=== PATIENT | male | born 1960 | race Caucasian/White ===

== ENCOUNTER 2020-11-01 09:30 | Outpatient (REF) | payer MEDICARE, MEDICAID, SELFPAY ==
[2020-11-01 10:53] LABS: Cholesterol 186 mg/dL; HDL Cholesterol 55 mg/dL; LDL Cholesterol Calculated 122 mg/dl; Triglycerides 46 mg/dL
== END 2020-11-01 09:31 | disposition home or self-care (01) ==
LOC: HO.LAB 09:30
PROVIDERS: PCP Internal Medicine; Visit Provider Internal Medicine
DX: E11.9 Type 2 diabetes mellitus without complications (principal)
CPT/HCPCS: 36415; 80061

== ENCOUNTER 2021-02-28 09:20 | Day surgery (SDC) | payer MEDICARE, MEDICAID, SELFPAY ==
--- NOTE | ~2021-02-28 | FL_ITS ---
EXAMINATION: XR LUMBAR PUNCTURE CLINICAL INFORMATION: Lower extremity neuropathy COMPARISON: None TECHNIQUE/FINDINGS:: Procedure and risks and benefits including bleeding, infection and headache were discussed with the patient and informed consent was obtained. The patient was positioned in the prone position. The back was prepped and draped in usual sterile fashion. Skin and soft tissues were anesthetized with 1% lidocaine plain. Using fluoroscopic guidance and a 22-gauge spinal needle, left-sided interlaminar access at the L4-L5 level was obtained. 9 mL of clear CSF fluid was removed. Opening pressure was 12 cm of water. FLUOROSCOPY TIME: 0.2 minutes DOSE AREA PRODUCT: 2.9 johns per centimeter squared. Total dose 13.6 mGy. 1 saved fluoroscopic image. FL/FL guided lumbar puncture LP IMPRESSION: Fluoroscopy-guided lumbar puncture.
[2021-02-28 10:45] LABS: MANUAL DIFF FLAG NO
[2021-02-28 10:48] LABS: Basophils Percent Auto 0.8 % (0-2); Eosinophils Absolute Auto 0.2 X10*3/uL (0.0-0.4); Eosinophils Percent Auto 3.8 % (0-4); Hematocrit 43.3 % (42-52); Hemoglobin 14.9 g/dl (14.0-18.0); Imm Gran Abs Auto 0.02 X10*3/uL (0.00-0.03); Imm Gran Pct Auto 0.4 % (0.0-0.4); Lymphocytes Absolute Auto 1.4 X10*3/uL (1.2-4.9); Lymphocytes Percent Auto 26.5 % (20-40); Mean Corpuscular HGB Conc 34.4 g/dl (31.0-36.0); Mean Corpuscular Hemoglobin 30.3 pg (27.0-33.0); Mean Platelet Volume 10.4 fL (9.4-12.4); Monocytes Absolute Auto 0.4 X10*3/uL (0.1-1.2); Monocytes Percent Auto 7.3 % (2-11); Neutrophils Absolute Auto 3.2 X10*3/uL (2.0-8.3); Neutrophils Percent Auto 61.2 % (45-73); Platelet Count 177 X10*3/uL (160-400); Red Blood Count 4.92 X10*6/uL (4.60-5.80); Red Cell Distribution Width 12.3 % (11.0-16.0); White Blood Count 5.2 X10*3/uL (4.8-10.8)
[2021-02-28 11:01] LABS: INTERNATIONAL NORM RATIO 1.2 (0.9-1.1); Prothrombin Time 13.2 SEC (9.9-13.0)
[2021-02-28 11:17] VITALS: BMI 32.1
--- NOTE | 2021-02-28 12:30 | HO.RADPN ---
RADIOLOGY Narrative Narrative: LP performed using 22 G spinal needle at l4/l5. 9 Ml CLEAR CSF REMOVED. oPENING PRESSURE 12 CM H20
[2021-02-28 12:35] VITALS: BP 140/87; PULSE 49; RESP 18; TEMP 36.9; O2SAT 95
[2021-02-28 12:50] VITALS: BP 149/85; PULSE 49; RESP 18; O2SAT 94
[2021-02-28 13:05] VITALS: BP 155/90; PULSE 61; RESP 18; O2SAT 95
[2021-02-28 13:09] LABS: Oligoclonal Serum Yes
[2021-02-28 13:28] LABS: CSF Appearance Clear, Colorless; CSF Tube # 1
[2021-02-28 13:35] VITALS: BP 132/85; PULSE 56; RESP 18; O2SAT 96
[2021-02-28 13:37] LABS: Glucose CSF 59 mg/dL; Total Protein CSF 144.2 mg/dL (15-45)
[2021-02-28 13:49] LABS: Appearance CSF CLEAR; CSF Tube # 4; Color CSF COLORLESS
[2021-02-28 13:50] LABS: Red Blood Cell CSF 0 MM*3; White Blood Cell CSF 0 MM*3
[2021-02-28 14:05] VITALS: BP 141/88; PULSE 54; RESP 18; O2SAT 99
[2021-02-28 14:36] VITALS: BP 148/93; PULSE 59; RESP 18; TEMP 37; O2SAT 100
[2021-03-03 01:37] LABS: Albumin 4.1 g/dL (3.5-5.2); Albumin, CSF 95.6 mg/dL (8.0-42.0); IgG 1100 mg/dL (600-1640); IgG Synthesis Rate 12.2 mg/24 h (-9.9-3.3); IgG, CSF 14.4 mg/dL (0.8-7.7)
== END 2021-02-28 14:47 | disposition home or self-care (01) ==
PROVIDERS: Psychiatry & Neurology Neurology; Radiology Diagnostic Radiology; PCP Internal Medicine; Visit Provider Radiology Diagnostic Radiology
PROC: 009U3ZZ Drainage of Spinal Canal, Percutaneous Approach (ICD-10-PCS; CPT 62270; principal; 2021-02-28 11:00)
DX: G61.81 Chronic inflammatory demyelinating polyneuritis (principal); M79.671 Pain in right foot; R73.01 Impaired fasting glucose; F32.9 Major depressive disorder, single episode, unspecified; F43.10 Post-traumatic stress disorder, unspecified; I10 Essential (primary) hypertension; E66.9 Obesity, unspecified; Z79.899 Other long term (current) drug therapy; Z79.52 Long term (current) use of systemic steroids
CPT/HCPCS: 36415; 62328; 82042; 82945; 83916; 84157; 85025; 85610; 85730; 87015; 87070; 87205; 89051

== ENCOUNTER 2021-03-21 09:23 | Outpatient (REF) | payer MEDICARE, MEDICAID, SELFPAY ==
[2021-03-21 11:28] LABS: HIV AB/AG Nonreactive (Nonreactive); HIV Num 1 0.11 S/CO (0.00-0.99)
== END 2021-03-21 09:24 | disposition home or self-care (01) ==
LOC: HO.LAB 09:23
PROVIDERS: PCP Internal Medicine; Visit Provider Psychiatry & Neurology Neurology
DX: Z11.4 Encounter for screening for human immunodeficiency virus [HIV] (principal); G61.81 Chronic inflammatory demyelinating polyneuritis
CPT/HCPCS: 36415; 87389

== ENCOUNTER 2021-06-06 00:22 | Emergency (ER) | payer MEDICARE, MEDICAID, SELFPAY ==
--- NOTE | ~2021-06-06 | CT_ITS ---
EXAMINATION: CT ANGIOGRAM OF THE CHEST WITH AND WITHOUT CONTRAST (CT PULMONARY ANGIOGRAM FOR PE) CLINICAL INFORMATION: Reason for Exam covid, r/o dvt COMPARISON: None TECHNIQUE: Prior to contrast administration, noncontrast localization images were obtained. Subsequently, multidetector volumetric imaging was performed from the thoracic inlet to below the diaphragms following the administration of 80 mL Omnipaque 350 intravenous contrast. No contrast reaction reported Sagittal, coronal, and MIP oblique sagittal reformatted images were obtained on the CT workstation, uploaded to PACS, and reviewed. This CT examination was performed using dose optimization techniques as appropriate, variously including the following: *Automated exposure control *Adjustment of mA and/or kV according to patient size (this includes techniques or standardized protocols for targeted exams where dose is matched to indication/reason for exam; i.e. extremities or head) *Use of iterative reconstruction technique Total exam dose-length product 405 mGy-cm FINDINGS: QUALITY OF STUDY/CONTRAST BOLUS: Satisfactory. PULMONARY ARTERIES: No central or segmental pulmonary emboli. THORACIC AORTA: No aneurysm or dissection. LUNG: There are scattered peripherally predominant patchy groundglass and consolidative airspace opacities. PLEURA: No pleural effusion or pneumothorax. MEDIASTINUM: Normal heart size. No pericardial effusion. No hilar or mediastinal lymphadenopathy. No evidence of septal bowing or right heart strain. CHEST WALL/AXILLA: No axillary or internal mammary lymphadenopathy. OSSEOUS STRUCTURES: No acute or suspicious osseous abnormality. UPPER ABDOMEN: Multiple hepatic cysts are present, largest measuring 10.3 cm within the right lobe of liver. CT/CT angio chest PE protocol IMPRESSION: * No pulmonary embolism. * Bilateral peripherally predominant patchy groundglass and consolidative airspace opacities, the pattern and appearance of which is classic for COVID pneumonitis, mild to moderate. VTE: negative
--- NOTE | ~2021-06-06 | XR_ITS ---
EXAMINATION: XR CHEST CLINICAL INFORMATION: Shortness of breath and cough COMPARISON: None TECHNIQUE: Frontal view of the chest was obtained. FINDINGS: Lungs are hypoinflated. Multiple infiltrates are present. These are commonly reported imaging features of Covid 19 or viral pneumonia. Other processes such as influenza pneumonia or organizing pneumonia, as can be seen with drug toxicity and connective tissue disease, can cause a similar imaging pattern. XR/XR chest 1V IMPRESSION: Multifocal pulmonary infiltrates as described above. Follow-up PA and lateral chest is recommended after treatment to a short clearing.
[2021-06-06 00:41] VITALS: BP 145/79; PULSE 88; RESP 22; TEMP 36.9; O2SAT 97; BMI 31.7
--- NOTE | 2021-06-06 01:12 | ECG_ITS ---
Test Reason : SOB Blood Pressure : / mmHG Vent. Rate : 080 BPM Atrial Rate : 080 BPM P-R Int : 146 ms QRS Dur : 088 ms QT Int : 356 ms P-R-T Axes : 021 -04 008 degrees QTc Int : 410 ms Normal sinus rhythm Normal ECG No previous ECGs available Referred By: Nat Paniagua Electronically Signed By:Mikey Taveras
--- NOTE | 2021-06-06 01:17 | ED.URI ---
HPI - URI/Sore Throat General Chief Complaint: Upper Respiratory Symptoms Stated Complaint: flu like symptoms (+ COVID 2 wks ago) Time Seen by Provider: 06/06/21 01:04 Source: patient Mode of arrival: ambulatory Limitations: no limitations History of Present Illness HPI Narrative: Patient comes emergency room complaining of shortness of breath. Patient states that he already finishes quadrant pain 2 weeks after being diagnosed with COVID. Patient states that he has not recovered fully and actually his shortness of breath is getting worse. 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 However, now he has trouble walking up the stairs. Patient denies chest pain, no palpitations. Patient complaining of subjective fever and chills. Patient complaining of diffuse body and joint pain Related Data Home Medications Medication Instructions Recorded Confirmed carbamazepine 200 mg tablet 200 mg PO BEDTIME PRN 03/03/21 03/03/21 Previous Rx's Medication Instructions Recorded ibuprofen 800 mg tablet 800 mg PO TID #90 tab 11/01/20 levofloxacin 500 mg tablet 500 mg PO DAILY #7 tab 06/06/21 Allergies Allergy/AdvReac Type Severity Reaction Status Date / Time TERE inhibitors Allergy Unknown Cough Uncoded 12/13/12 00:00 Review of Systems Review of Systems: Constitutional : No Weight loss, complaining of subjective fever, chills, fatigue and generalized malaise ENT/Mouth : No Hearing loss, No Ear Pain, No Nasal Congestion, No Sinus Pain, No Hoarseness, No sore throat, No Rhinorrhea, No Swallowing Difficulty Eyes: No Eye Pain, No Swelling, No Redness, No Foreign Body, No Discharge, No Vision Changes Cardiovascular : No Chest Pain, no palpitations, worsening shortness of breath with exertion Respiratory : Complaining of Cough, No Sputum, No Wheezing, No Smoke Exposure, complaining of worsening Dyspnea Gastrointestinal : No Nausea, No Vomiting, No Diarrhea, No Constipation, No abdominal Pain, No Hematochezia, No Melena Genitourinary : no irregular bleeding, No Dysuria, No Urinary Frequency, No Hematuria, No Urinary Incontinence, No Urgency, No Flank Pain, No Urinary Flow Changes, No Hesitancy Musculoskeletal : No joint pain, No Myalgias, No Joint Swelling Skin : No Skin Lesions, No rash Neuro : No Weakness, No Numbness, No Paresthesias, No Loss of Consciousness, No Dizziness, No Headache Psych : No Anxiety/Panic, No Depression, No SI/HI/AH/VH, No Social Issues, Heme/Lymph: No Bruising, No Bleeding,No Lymphadenopathy Endocrine : No Polyuria, No Polydipsia, No Temperature Intolerance [facility] Past Medical History Medical History Neuropathy Obesity PTSD (post-traumatic stress disorder) Surgical History History of appendectomy History of cystoscopy History of surgery Family History Family History (Updated 03/03/21 @ 09:24 by SORIN Montgomery) Father Myocardial infarction Mother Hypertension Brother Diabetes Son Neuroblastoma Social History Social History Housing: Apartment Alcohol intake: current Alcohol intake frequency: holidays/special occasions only Patient Tobacco Use Status: Former Tobacco user Tobacco use type: Cigarette e-Cigarette/Vaping Use: Never Used Second Hand Smoke Exposure: No Advance Directives: No Advance Directives Information Provided: Yes service: Yes Current occupational status: employed and disabled Physical Exam Vital Signs: Vital Signs: Last Vital Signs Temp 98.5 F 06/06/21 00:41 Pulse 88 06/06/21 00:41 Resp 22 H 06/06/21 00:41 BP 145/79 H 06/06/21 00:41 Pulse Ox 97 06/06/21 00:41 BMI result Body Mass Index 31.7 Const: Other: Appearance: Alert. Oriented X3. No acute distress. Eyes: Pupils equal, round and reactive to light. ENT: Pharynx normal. Neck: Normal inspection. Neck supple. No lymph nodes noted. No crepitus CVS: Normal heart rate and rhythm. Pulses normal. Normal S1 and S2 Respiratory: No respiratory distress. Mildly Increased work of breathing No Wheezing. Patient does have rales bilaterally Abdomen: Soft and nontender. No rigidity. No distention. Skin: Skin warm and dry. Normal skin color. Normal skin turgor. Extremities: No lower extremity edema. No Lacerations. No Rash Neuro: Oriented X 3. No motor deficit. No sensory deficit. Moving all extermities. No slurred speech. Course Course Course Narrative: Patient was ambulated in the COVID section. Patient's oxygen saturation stayed above 95%. CT scan for PE was negative for DVT. Patient has multiple hepatic cysts. Patient received 1 dose of IV Levaquin, IV fluids and Decadron. Given the onset of patient's symptoms, age and medical history, patient is not a candidate for monoclonal antibody infusion therapy MDM - URI/Sore Throat Lab Data Result diagrams: 06/06/21 01:46 06/06/21 01:46 Labs: Lab Results 06/06/21 06/06/21 06/06/21 Range/Units 01:46 01:46 01:46 WBC 8.0 (4.8-10.8) X10*3/uL RBC 4.29 L (4.60-5.80) X10*6/uL Hgb 12.9 L (14.0-18.0) g/dl Hct 37.0 L (42.0-52.0) % MCV 86.2 (80.0-98.0) fL MCH 30.1 (27.0-33.0) pg MCHC 34.9 (31.0-36.0) g/dl RDW 12.3 (11.0-16.0) % Plt Count 159 L (160-400) X10*3/uL MPV 9.7 (9.4-12.4) fL Immature Gran % (Auto) 0.4 (0.0-0.4) % Neut % (Auto) 76.9 H (45-73) % Lymph % (Auto) 15.1 L (20-40) % [place] % (Auto) 6.7 (2-11) % Eos % (Auto) 0.8 (0-4) % Baso % (Auto) 0.1 (0-2) % Lymph # (Auto) 1.2 (1.2-4.9) X10*3/uL [place] # (Auto) 0.5 (0.1-1.2) X10*3/uL Eos # (Auto) 0.1 (0.0-0.4) X10*3/uL Baso # (Auto) 0.0 (0.0-0.2) X10*3/uL Abs Immat Gran (auto) 0.03 (0.00-0.03) X10*3/uL Absolute Neuts (auto) 6.1 (2.0-8.3) x10*3/uL Absolute Nucleated RBC 0.000 (0.0-0.012) X10*3/uL Nucleated RBC % (auto) 0.0 (0.0-0.2) /100WBC Smear Tech's Comments VERIFIED D-Dimer High Sensitivty 407 NG/ML Sodium (135-145) mmol/L Potassium (3.3-5.1) mmol/L Chloride (96-108) mmol/L Carbon Dioxide (22-29) mmol/L Anion Gap (12-20) BUN (9-16) mg/dL Creatinine (0.5-1.4) mg/dL Estim Creat Clear Calc Estimated GFR Random Glucose (60-115) mg/dL Lactic Acid (0.5-2.0) mmol/L Calcium (8.4-10.2) mg/dL Total Bilirubin (0.0-1.0) mg/dL Direct Bilirubin (0.0-0.5) mg/dL AST (5-37) U/L ALT (0-40) U/L Alkaline Phosphatase (39-117) U/L Troponin I High Sens (<3.5-35.0) ng/L B-Natriuretic Peptide (<100) pg/mL Total Protein (6.5-8.0) g/dL Albumin (3.5-5.0) g/dL COVID-19 (ANUSHA) Positive A (Negative) COVID-19 Clin Com See Note 06/06/21 06/06/21 06/06/21 Range/Units 01:46 01:46 01:46 WBC (4.8-10.8) X10*3/uL RBC (4.60-5.80) X10*6/uL Hgb (14.0-18.0) g/dl Hct (42.0-52.0) % MCV (80.0-98.0) fL MCH (27.0-33.0) pg MCHC (31.0-36.0) g/dl RDW (11.0-16.0) % Plt Count (160-400) X10*3/uL MPV (9.4-12.4) fL Immature Gran % (Auto) (0.0-0.4) % Neut % (Auto) (45-73) % Lymph % (Auto) (20-40) % [place] % (Auto) (2-11) % Eos % (Auto) (0-4) % Baso % (Auto) (0-2) % Lymph # (Auto) (1.2-4.9) X10*3/uL [place] # (Auto) (0.1-1.2) X10*3/uL Eos # (Auto) (0.0-0.4) X10*3/uL Baso # (Auto) (0.0-0.2) X10*3/uL Abs Immat Gran (auto) (0.00-0.03) X10*3/uL Absolute Neuts (auto) (2.0-8.3) x10*3/uL Absolute Nucleated RBC (0.0-0.012) X10*3/uL Nucleated RBC % (auto) (0.0-0.2) /100WBC Smear Tech's Comments D-Dimer High Sensitivty NG/ML Sodium 136 (135-145) mmol/L Potassium 4.1 (3.3-5.1) mmol/L Chloride 101 (96-108) mmol/L Carbon Dioxide 25 (22-29) mmol/L Anion Gap 14 (12-20) BUN 12 (9-16) mg/dL Creatinine 0.85 (0.5-1.4) mg/dL Estim Creat Clear Calc 107.7 Estimated GFR > 60 Random Glucose 105 (60-115) mg/dL Lactic Acid 1.0 (0.5-2.0) mmol/L Calcium 8.7 (8.4-10.2) mg/dL Total Bilirubin 1.1 H (0.0-1.0) mg/dL Direct Bilirubin 0.5 (0.0-0.5) mg/dL AST 54 H (5-37) U/L ALT 37 (0-40) U/L Alkaline Phosphatase 74 (39-117) U/L Troponin I High Sens 7.4 (<3.5-35.0) ng/L B-Natriuretic Peptide 39 (<100) pg/mL Total Protein 6.2 L (6.5-8.0) g/dL Albumin 3.5 (3.5-5.0) g/dL COVID-19 (ANUSHA) (Negative) COVID-19 Clin Com Imaging Data CTA for PE: Radiologist's impression: FINDINGS: QUALITY OF STUDY/CONTRAST BOLUS: Satisfactory. PULMONARY ARTERIES: No central or segmental pulmonary emboli.? THORACIC AORTA: No aneurysm or dissection. LUNG: There are scattered peripherally predominant patchy groundglass and consolidative airspace opacities. PLEURA: No pleural effusion or pneumothorax. MEDIASTINUM: Normal heart size.? No pericardial effusion.? No hilar or mediastinal lymphadenopathy.? No evidence of septal bowing or right heart strain. CHEST WALL/AXILLA: No axillary or internal mammary lymphadenopathy. OSSEOUS STRUCTURES: No acute or suspicious osseous abnormality.? UPPER ABDOMEN: Multiple hepatic cysts are present, largest measuring 10.3 cm within the right lobe of liver. CT/CT angio chest PE protocol IMPRESSION: *? No pulmonary embolism. *? Bilateral peripherally predominant patchy groundglass and consolidative airspace opacities, the pattern and appearance of which is classic for COVID pneumonitis, mild to moderate. ? VTE: negative Discharge Plan Discharge Clinical Impression: Pneumonia due to 2019 novel coronavirus Patient Disposition: Home, Self-Care Instructions: Pneumonia (ED) Additional Instructions: Please follow-up with your primary care physician tomorrow. If you have any worsening or new symptoms, please return to the emergency room or call 911 Prescriptions: New levofloxacin 500 mg tablet 500 mg PO DAILY Qty: 7 RF: 0 No Action ibuprofen 800 mg tablet 800 mg PO TID Qty: 90 RF: 8 carbamazepine 200 mg tablet 200 mg PO BEDTIME PRNRF: 0
--- NOTE | 2021-06-06 01:34 | PC.NURSE ---
when ambulating pt's PO 95-96% on RA. MD aware. Pt up to restroom for gown placement.
--- NOTE | 2021-06-06 02:04 | PC.NURSE ---
IV PLACED TO RAC, LABS DRAWN TO LAB. COVID OBTAINED ALONG WITH BC X 2. PT ALERT, RESPIRATIONS N/L. SKIN W/D. WILL CONTINUE TO MONITOR PT.
[2021-06-06 02:12] LABS: Basophils Percent Auto 0.1 % (0-2); Eosinophils Absolute Auto 0.1 X10*3/uL (0.0-0.4); Eosinophils Percent Auto 0.8 % (0-4); Hemoglobin 12.9 g/dl (14.0-18.0); Imm Gran Abs Auto 0.03 X10*3/uL (0.00-0.03); Imm Gran Pct Auto 0.4 % (0.0-0.4); Lymphocytes Absolute Auto 1.2 X10*3/uL (1.2-4.9); Lymphocytes Percent Auto 15.1 % (20-40); MANUAL DIFF FLAG SCAN; Mean Corpuscular HGB Conc 34.9 g/dl (31.0-36.0); Mean Corpuscular Hemoglobin 30.1 pg (27.0-33.0); Mean Corpuscular Volume 86.2 fL (80.0-98.0); Mean Platelet Volume 9.7 fL (9.4-12.4); Monocytes Absolute Auto 0.5 X10*3/uL (0.1-1.2); Monocytes Percent Auto 6.7 % (2-11); Neutrophils Absolute Auto 6.1 x10*3/uL (2.0-8.3); Neutrophils Percent Auto 76.9 % (45-73); Platelet Count 159 X10*3/uL (160-400); Red Blood Count 4.29 X10*6/uL (4.60-5.80); Red Cell Distribution Width 12.3 % (11.0-16.0); SCAN SMEAR FLAG 1
[2021-06-06] MEDS: 0.9 % Sodium Chloride 1,000 ML 999 ML IVCONT (02:13)
[2021-06-06] MEDS: dexAMETHasone sod phosphate 4 MG/ML VIAL 6 MG IVPUSH (02:14)
[2021-06-06] MEDS: levoFLOXacin/D5W 500 MG/100 ML PIGGYBACK 100 MG IV (02:14)
[2021-06-06 02:17] LABS: IDNOW Serial# 9DD0AD1C
[2021-06-06 02:19] LABS: COVID-19 Test Positive (Negative)
[2021-06-06 02:21] LABS: D Dimer High Sensitivity 407 NG/ML
[2021-06-06 02:30] LABS: SLIDE REVIEW VERIFIED
[2021-06-06 02:32] LABS: Alanine Aminotransferase 37 U/L (0-40); Albumin Level 3.5 g/dL (3.5-5.0); Alkaline Phosphatase 74 U/L (39-117); Anion Gap 14 (12-20); Aspartate Amino Transferase 54 U/L (5-37); Bilirubin Direct 0.5 mg/dL (0.0-0.5); Bilirubin Total 1.1 mg/dL (0.0-1.0); Blood Urea Nitrogen 12 mg/dL (9-16); Calcium 8.7 mg/dL (8.4-10.2); Carbon Dioxide 25 mmol/L (22-29); Chloride 101 mmol/L (96-108); Creatinine Clr Calc Pharmacy 107.7; Estimated Glomerular Filt Rate > 60; Glucose Random 105 mg/dL (60-115); Potassium 4.1 mmol/L (3.3-5.1); Sodium 136 mmol/L (135-145); Total Protein 6.2 g/dL (6.5-8.0)
[2021-06-06 02:33] LABS: B Type Natriuretic Peptide 39 pg/mL (<100); Troponin-I High Sensitivity 7.4 ng/L (<3.5-35.0)
[2021-06-06] MEDS: iohexoL 350 MG/ML 100 ML INFUS..BTL 65 ML IV (03:32)
== END 2021-06-06 05:25 | disposition home or self-care (01) ==
PROVIDERS: Emergency Provider Emergency Medicine; PCP Internal Medicine
DX: U07.1 COVID-19 (principal); J12.82 Pneumonia due to coronavirus disease 2019; R06.02 Shortness of breath
CPT/HCPCS: 36415; 71045; 71275; 80048; 80076; 83605; 83880; 84484; 85025; 85379; 87040; 87635; 93005; 96361; 96374; 96375; 99283; 99284; J1100; J1956; Q9967

== ENCOUNTER 2021-06-14 15:14 | Emergency (ER) | payer MEDICARE, MEDICAID, SELFPAY ==
--- NOTE | ~2021-06-14 | XR_ITS ---
EXAMINATION: XR CHEST CLINICAL INFORMATION: Chest tightness COMPARISON: Chest radiographs 06/06/2021, CTA chest 06/06/2021 TECHNIQUE: Frontal view of the chest was obtained. FINDINGS: There are patchy bilateral airspace opacities again seen of similar severity and distribution to recent imaging 06/06/2021. There is no interval lobar or segmental airspace consolidation or effusion. The heart is normal in size. The vascularity is normal. XR/XR chest 1V IMPRESSION: Patchy bilateral airspace opacities similar to recent imaging.
--- NOTE | 2021-06-14 15:50 | ECG_ITS ---
Test Reason : DYSPNEA Blood Pressure : / mmHG Vent. Rate : 082 BPM Atrial Rate : 082 BPM P-R Int : 146 ms QRS Dur : 082 ms QT Int : 360 ms P-R-T Axes : 013 000 011 degrees QTc Int : 420 ms Normal sinus rhythm Normal ECG No previous ECGs available Referred By: Generic ED Physician Electronically Signed By:CHECO CALLE MD
[2021-06-14 15:57] VITALS: BP 99/67; PULSE 95; RESP 18; TEMP 37; O2SAT 96; BMI 31.7
[2021-06-14 16:34] VITALS: BP 110/72; PULSE 83; RESP 20; TEMP 36.9; O2SAT 95
[2021-06-14 17:00] LABS: Basophils Percent Auto 0.5 % (0-2); Eosinophils Absolute Auto 0.1 X10*3/uL (0.0-0.4); Eosinophils Percent Auto 1.1 % (0-4); Hematocrit 36.3 % (42.0-52.0); Hemoglobin 12.3 g/dl (14.0-18.0); Imm Gran Abs Auto 0.05 X10*3/uL (0.00-0.03); Imm Gran Pct Auto 0.8 % (0.0-0.4); Lymphocytes Absolute Auto 1.4 X10*3/uL (1.2-4.9); Lymphocytes Percent Auto 22.6 % (20-40); MANUAL DIFF FLAG NO; Mean Corpuscular HGB Conc 33.9 g/dl (31.0-36.0); Mean Corpuscular Hemoglobin 29.9 pg (27.0-33.0); Mean Corpuscular Volume 88.3 fL (80.0-98.0); Monocytes Absolute Auto 0.7 X10*3/uL (0.1-1.2); Monocytes Percent Auto 10.8 % (2-11); Neutrophils Absolute Auto 4.1 x10*3/uL (2.0-8.3); Neutrophils Percent Auto 64.2 % (45-73); Platelet Count 262 X10*3/uL (160-400); Red Blood Count 4.11 X10*6/uL (4.60-5.80); Red Cell Distribution Width 12.1 % (11.0-16.0); White Blood Count 6.4 X10*3/uL (4.8-10.8)
--- NOTE | 2021-06-14 17:10 | ED.SOB ---
HPI - SOB/Dyspnea General Chief Complaint: Dyspnea Stated Complaint: covid + diff breathing Time Seen by Provider: 06/14/21 17:07 History of Present Illness HPI Narrative: Patient 60-year-old male tested positive for COVID approximately 3 weeks ago. Continued to have coughing congestion upper respiratory symptoms. Patient claimed the symptoms never improved. Presented back to the emergency department. There is no leg swelling. There is no chest pain. There is no diaphoresis. Patient from home. Patient is not vaccinated. Related Data Home Medications Medication Instructions Recorded Confirmed carbamazepine 200 mg tablet 200 mg PO BEDTIME PRN 03/03/21 03/03/21 Previous Rx's Medication Instructions Recorded ibuprofen 800 mg tablet 800 mg PO TID #90 tab 11/01/20 levofloxacin 500 mg tablet 500 mg PO DAILY #7 tab 06/06/21 doxycycline hyclate 100 mg capsule 100 mg PO BID 7 Days #14 cap 06/14/21 Allergies Allergy/AdvReac Type Severity Reaction Status Date / Time TERE inhibitors Allergy Unknown Cough Uncoded 06/14/21 16:40 Review of Systems Review of Systems: Positive coughing upper respiratory symptoms positive generalized malaise no focal weakness all system reviewed otherwise negative [facility] Past Medical History Attestation statement: The following information was validated with the patient. Medical History Neuropathy Obesity PTSD (post-traumatic stress disorder) Surgical History History of appendectomy History of cystoscopy History of surgery Family History Family History Father Myocardial infarction Mother Hypertension Brother Diabetes Son Neuroblastoma Social History Social History Housing: Apartment Alcohol intake: current Alcohol intake frequency: holidays/special occasions only Patient Tobacco Use Status: Former Tobacco user Tobacco use type: Cigarette e-Cigarette/Vaping Use: Never Used Second Hand Smoke Exposure: No Use of substances other than those prescribed or required for medical reasons: No Advance Directives: No Advance Directives Information Provided: Yes service: Yes Current occupational status: employed and disabled Physical Exam Vital Signs: Vital Signs: Last Vital Signs Temp 98.4 F 06/14/21 16:34 Pulse 83 06/14/21 16:34 Resp 20 06/14/21 16:34 BP 110/72 06/14/21 16:34 Pulse Ox 95 06/14/21 16:34 BMI result Body Mass Index 31.7 Appearance: Alert. Oriented X3. No acute distress. Eyes: Pupils equal, round and reactive to light. ENT: Pharynx normal. Neck: Normal inspection. Neck supple. No lymph nodes noted. No crepitus CVS: Normal heart rate and rhythm. Pulses normal. Normal S1 and S2 Respiratory: No respiratory distress. Breath sounds normal. No Wheezing. No rales Abdomen: Soft and nontender. No rigidity. No distention. good BS x4 Skin: Skin warm and dry. Normal skin color. Normal skin turgor. Extremities: No lower extremity edema. Neurovascular intact to all extremities. No Lacerations. No Rash Neuro: Oriented X 3. No motor deficit. No sensory deficit. Moving all extermities. No slurred speech MDM - SOB/Dyspnea MDM Narrative Medical decision making narrative: EKG showed a sinus pattern heart rate is 75 CO QRS QTC within normal limits there is no acute ST segment elevation noted. Patient's white count 6.4. Chest x-ray showed no acute changes. Patient did have COVID during the last ED presentation. Current COVID test is negative. Patient's D-dimer is 293 age adjusted is negative. In stable condition. Given risk of PE otherwise low. History not consistent with pulmonary emboli patient unlikely to have PE. Given the x-ray presentation will start patient on doxycycline for possible atypical pneumonia. Patient ambulated well in the emergency department. BMP was normal there is no evidence for congestive heart failure. Currently in stable condition. Will discharge home. Medical Records Attestation: I reviewed the patient's medical records. Lab Data Attestation: I reviewed the patient's lab results. Result diagrams: 06/14/21 16:53 06/14/21 16:53 Labs: Lab Results 06/14/21 06/14/21 06/14/21 Range/Units 16:52 16:53 16:53 WBC 6.4 (4.8-10.8) X10*3/uL RBC 4.11 L (4.60-5.80) X10*6/uL Hgb 12.3 L (14.0-18.0) g/dl Hct 36.3 L (42.0-52.0) % MCV 88.3 (80.0-98.0) fL MCH 29.9 (27.0-33.0) pg MCHC 33.9 (31.0-36.0) g/dl RDW 12.1 (11.0-16.0) % Plt Count 262 D (160-400) X10*3/uL MPV 9.0 L (9.4-12.4) fL Immature Gran % (Auto) 0.8 H (0.0-0.4) % Neut % (Auto) 64.2 (45-73) % Lymph % (Auto) 22.6 (20-40) % [place] % (Auto) 10.8 (2-11) % Eos % (Auto) 1.1 (0-4) % Baso % (Auto) 0.5 (0-2) % Lymph # (Auto) 1.4 (1.2-4.9) X10*3/uL [place] # (Auto) 0.7 (0.1-1.2) X10*3/uL Eos # (Auto) 0.1 (0.0-0.4) X10*3/uL Baso # (Auto) 0.0 (0.0-0.2) X10*3/uL Abs Immat Gran (auto) 0.05 H (0.00-0.03) X10*3/uL Absolute Neuts (auto) 4.1 (2.0-8.3) x10*3/uL Absolute Nucleated RBC 0.000 (0.0-0.012) X10*3/uL Nucleated RBC % (auto) 0.0 (0.0-0.2) /100WBC D-Dimer High Sensitivty NG/ML Sodium 141 (135-145) mmol/L Potassium 4.4 (3.3-5.1) mmol/L Chloride 108 (96-108) mmol/L Carbon Dioxide 26 (22-29) mmol/L Anion Gap 11 L (12-20) BUN 12 (9-16) mg/dL Creatinine 0.96 (0.5-1.4) mg/dL Estim Creat Clear Calc 95.4 Estimated GFR > 60 Random Glucose 96 (60-115) mg/dL Calcium 8.9 (8.4-10.2) mg/dL Troponin I High Sens (<3.5-35.0) ng/L B-Natriuretic Peptide (<100) pg/mL COVID-19 (ANUSHA) Negative (Negative) COVID-19 Clin Com See Note 06/14/21 06/14/21 Range/Units 16:53 17:37 WBC (4.8-10.8) X10*3/uL RBC (4.60-5.80) X10*6/uL Hgb (14.0-18.0) g/dl Hct (42.0-52.0) % MCV (80.0-98.0) fL MCH (27.0-33.0) pg MCHC (31.0-36.0) g/dl RDW (11.0-16.0) % Plt Count (160-400) X10*3/uL MPV (9.4-12.4) fL Immature Gran % (Auto) (0.0-0.4) % Neut % (Auto) (45-73) % Lymph % (Auto) (20-40) % [place] % (Auto) (2-11) % Eos % (Auto) (0-4) % Baso % (Auto) (0-2) % Lymph # (Auto) (1.2-4.9) X10*3/uL [place] # (Auto) (0.1-1.2) X10*3/uL Eos # (Auto) (0.0-0.4) X10*3/uL Baso # (Auto) (0.0-0.2) X10*3/uL Abs Immat Gran (auto) (0.00-0.03) X10*3/uL Absolute Neuts (auto) (2.0-8.3) x10*3/uL Absolute Nucleated RBC (0.0-0.012) X10*3/uL Nucleated RBC % (auto) (0.0-0.2) /100WBC D-Dimer High Sensitivty 293 NG/ML Sodium (135-145) mmol/L Potassium (3.3-5.1) mmol/L Chloride (96-108) mmol/L Carbon Dioxide (22-29) mmol/L Anion Gap (12-20) BUN (9-16) mg/dL Creatinine (0.5-1.4) mg/dL Estim Creat Clear Calc Estimated GFR Random Glucose (60-115) mg/dL Calcium (8.4-10.2) mg/dL Troponin I High Sens < 3.5 D (<3.5-35.0) ng/L B-Natriuretic Peptide 106 H (<100) pg/mL COVID-19 (ANUSHA) (Negative) COVID-19 Clin Com Discharge Plan Discharge Clinical Impression: Acute upper respiratory infection Patient Disposition: Home, Self-Care Instructions: Acute Bronchitis (ED) Prescriptions: New doxycycline hyclate 100 mg capsule 100 mg PO BID 7 Days Qty: 14 RF: 0 No Action levofloxacin 500 mg tablet 500 mg PO DAILY Qty: 7 RF: 0 ibuprofen 800 mg tablet 800 mg PO TID Qty: 90 RF: 8 carbamazepine 200 mg tablet 200 mg PO BEDTIME PRNRF: 0 Referrals: Robert Diallo MD [Primary Care Provider] - 2 days
[2021-06-14 17:14] LABS: Anion Gap 11 (12-20); Blood Urea Nitrogen 12 mg/dL (9-16); Calcium 8.9 mg/dL (8.4-10.2); Carbon Dioxide 26 mmol/L (22-29); Chloride 108 mmol/L (96-108); Creatinine Clr Calc Pharmacy 95.4; Estimated Glomerular Filt Rate > 60; Glucose Random 96 mg/dL (60-115); Potassium 4.4 mmol/L (3.3-5.1); Sodium 141 mmol/L (135-145)
[2021-06-14 17:18] LABS: COVID-19 Test Negative (Negative); IDNOW Serial# 9DD0AD1C
--- NOTE | 2021-06-14 17:18 | PC.NURSE ---
reporting ROTHMAN and inability to get exercise. skin pwd. ls cta. awaiting lab results. states he was first covid positive on 05/25 .
[2021-06-14 17:22] LABS: Troponin-I High Sensitivity < 3.5 ng/L (<3.5-35.0)
[2021-06-14 17:42] LABS: B Type Natriuretic Peptide 106 pg/mL (<100)
[2021-06-14 17:50] LABS: D Dimer High Sensitivity 293 NG/ML
[2021-06-14 18:28] VITALS: BP 146/93; RESP 18; O2SAT 95
== END 2021-06-14 18:34 | disposition home or self-care (01) ==
PROVIDERS: Emergency Provider Emergency Medicine Emergency Medical Services; PCP Internal Medicine
DX: J06.9 Acute upper respiratory infection, unspecified (principal); Z20.822 Contact with and (suspected) exposure to COVID-19; R06.02 Shortness of breath
CPT/HCPCS: 36415; 71045; 80048; 83880; 84484; 85025; 85379; 87635; 93005; 99283; 99284

== ENCOUNTER 2021-06-21 11:02 | Outpatient (REF) | payer MEDICARE, MEDICAID, SELFPAY ==
--- NOTE | ~2021-06-21 | XR_ITS ---
EXAMINATION: XR HAND, RIGHT CLINICAL INFORMATION: Pain. COMPARISON: None TECHNIQUE: PA, lateral, and oblique views of the right hand. FINDINGS: The bones and soft tissues are normal. No fracture. Alignment is anatomic. Joint spaces are maintained. No erosions or soft tissue calcifications. XR/XR hand RT 2V IMPRESSION: Unremarkable examination.
== END 2021-06-21 11:03 | disposition home or self-care (01) ==
LOC: HO.XRAY 11:02
PROVIDERS: PCP Internal Medicine; Visit Provider Internal Medicine
DX: M79.643 Pain in unspecified hand (principal)
CPT/HCPCS: 73120

== ENCOUNTER 2021-06-24 00:58 | Emergency (ER) | payer MEDICARE, MEDICAID, SELFPAY ==
[2021-06-24 01:28] VITALS: BP 158/87; PULSE 78; RESP 16; TEMP 36.7; O2SAT 97; BMI 32.1
--- NOTE | 2021-06-24 01:37 | ECG_ITS ---
Test Reason : SHOULDER PAIN Blood Pressure : / mmHG Vent. Rate : 071 BPM Atrial Rate : 071 BPM P-R Int : 162 ms QRS Dur : 084 ms QT Int : 394 ms P-R-T Axes : 037 003 028 degrees QTc Int : 428 ms Sinus rhythm with occasional Premature ventricular complexes Normal EKG When compared with ECG of 06-JUN-2021 02:00, Premature ventricular complexes are now Present Referred By: Generic ED Physician Electronically Signed By:BENJA ESPITIA
--- NOTE | 2021-06-24 02:12 | ED.EXTPRO ---
HPI - Extremity Problem General Chief complaint: Extremity Injury, Upper Stated complaint: right arm pain Time Seen by Provider: 06/24/21 02:12 Source: patient Mode of arrival: ambulatory History of Present Illness HPI Narrative: 60-year-old male presents with concerns regarding nerve pain into the right upper extremity that has been ongoing since and is currently being worked up by his primary care provider with plans for conduction studies. However, patient presents because he states he could not stand the pain into his hand denies having used splints at night although ruling out carpal tunnel is 1 of the goals for his primary care provider as per patient. Related Data Home Medications Medication Instructions Recorded Confirmed carbamazepine 200 mg tablet 200 mg PO BEDTIME PRN 03/03/21 06/23/21 prednisolone sodium phosphate 30 30 mg PO DAILY 06/21/21 06/23/21 mg disintegrating tablet Previous Rx's Medication Instructions Recorded ibuprofen 800 mg tablet 800 mg PO TID #90 tab 11/01/20 naproxen 500 mg tablet (Naprosyn) 500 mg PO BID PRN #60 tab 06/21/21 ketorolac 10 mg tablet 10 mg PO Q6H PRN 5 Days #20 tab 06/24/21 Allergies Allergy/AdvReac Type Severity Reaction Status Date / Time TERE inhibitors Allergy Unknown Cough Uncoded 06/14/21 16:40 Review of Systems Review of Systems: Pertinent positives and negatives as stated in HPI 10 point review of systems otherwise negative. [facility] Past Medical History Source: nursing notes reviewed Medical History Neuropathy Obesity PTSD (post-traumatic stress disorder) Surgical History History of appendectomy History of cystoscopy History of surgery Family History Family History Father Myocardial infarction Mother Hypertension Brother Diabetes Son Neuroblastoma Social History Social History Housing: Apartment Alcohol intake: current Alcohol intake frequency: holidays/special occasions only Patient Tobacco Use Status: Former Tobacco user Tobacco use type: Cigarette e-Cigarette/Vaping Use: Never Used Second Hand Smoke Exposure: No Advance Directives: No Advance Directives Information Provided: Yes service: Yes Current occupational status: employed and disabled Physical Exam Vital Signs: Vital Signs: Last Vital Signs Temp 98.1 F 06/24/21 01:28 Pulse 78 06/24/21 01:28 Resp 16 06/24/21 01:28 BP 158/87 H 06/24/21 01:28 Pulse Ox 97 06/24/21 01:28 BMI result Body Mass Index 32.1 VITAL SIGNS: Reviewed. GENERAL: Well developed, well nourished, in no acute distress. HEAD: Normocephalic/atraumatic EYES: PERRLA, EOMI LUNGS: Normal breath sounds. No adventitious sounds or accessory muscle use. SpO2<97> CARDIOVASCULAR: Regular rate and rhythm without noted murmurs ABDOMEN: Soft, non-tender, non-distended with bowel sounds. RIGHT UPPER EXTREMITY: No color changes, no erythema/induration, palpable radial/ulnar pulses with capillary refill less than 2 seconds but difficulty with making a fist and some swelling noted around palmar aspect of wrist. NEUROLOGIC: Alert and oriented x 4. Course Course Course Narrative: 60-year-old male with history and clinical presentation consistent with neuropathic pain suggestive of possible carpal tunnel and low clinical suspicion for any DVT or cellulitis. Patient was provided with combination analgesics and on re-evaluation states he is feeling much better. Review of all investigations otherwise negative for acute findings. MDM - Extremity (Nontraumatic) ECG Data Attestation EKG: I personally reviewed and interpreted this ECG as follows: Prior ECG tracings: available for review (06/06/2021) Interpretation: Sinus rhythm with PVCs, HR-71, no STEMI, MT/QRS/QTC are within normal limits. Discharge Plan Discharge Clinical Impression: Neuropathy Patient Disposition: Home, Self-Care Instructions: Peripheral Neuropathy (ED) Prescriptions: New ketorolac 10 mg tablet 10 mg PO Q6H PRN (Reason: pain) 5 Days Qty: 20 RF: 0 No Action ibuprofen 800 mg tablet 800 mg PO TID Qty: 90 RF: 8 carbamazepine 200 mg tablet 200 mg PO BEDTIME PRNRF: 0 prednisolone sodium phosphate 30 mg tablet,disintegrating 30 mg PO DAILY RF: 0 naproxen [Naprosyn] 500 mg tablet 500 mg PO BID PRN (Reason: pain) Qty: 60 RF: 7 Referrals: Robert Diallo MD [Primary Care Provider] - 2 days
[2021-06-24] MEDS: Acetaminophen 325 MG TABLET 975 MG PO (02:50)
[2021-06-24] MEDS: Ketorolac Tromethamine 30 MG/ML VIAL 15 MG IM (02:50)
--- NOTE | 2021-06-24 04:56 | PC.NURSE ---
pt left without being taking discharge paper work.
== END 2021-06-24 04:56 | disposition home or self-care (01) ==
PROVIDERS: Emergency Provider Student in an Organized Health Care Education/Training Program; PCP Internal Medicine
DX: G62.9 Polyneuropathy, unspecified (principal); M79.621 Pain in right upper arm
CPT/HCPCS: 93005; 96372; 99283; 99284; J1885

== ENCOUNTER 2021-08-02 13:30 | Outpatient (RCR) | payer MEDICARE, MEDICAID, SELFPAY ==
--- NOTE | 2021-06-28 16:16 | MHC.OT.OEV ---
[address] [phone] F: [phone] Occupational Therapy Evaluation Diagnosis: Pain in right hand Date of Onset: 05/25/21 Date of Surgery: Attending Provider: Robert Avila MD Prescribed Treatment: Eval and coty DONIS Follow Up Appointment: History of Current Condition: Pt reports RUE sx a day after DX Covid , given IV fluids.. and antibiotics.. not hospitalized. Developed pneumonia... RUE sx worsening. Xray taken 06/21/21 for wrist and hand , unremarkable. PCP follow up on 06/23/21 06/23/21 Orders for OT and for NCV. NCV not scheduled yet. Seen in the ED 06/24/21 due to arm pain. Was given Rx tylonal per pt reports. Significant Medical History: Hx bladder CA, neuropathy in the feet. Precautions/Contraindications: Pain Patient Goals: Solve the problem Hand Dominance: Left Observations: QuickDASH Score: 100 Prior Level of Function and Occupation Self Care, Employment, Leisure: Indep in all area, Disability x 15 yrs, PTSS, night terrors. 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 with right Sleep: Interrupted due to worsening of pain Driving: Limited knocker off on steering wheel Vision: Balance: Pain Assessment Pain Score: 10 Pain Scale Used: Numeric (0 - 10) Pain Location and Description: 10 R UE . Teres minor, posterior deltoid, wrist and hand Aggravating Factors: With use. Inc with wrist motion Alleviating Factors: Frequently attempting to find a comfortable position generally in neutral rotation and neutral wrist. Skin and Soft Tissue Assessment Skin and Soft Tissue: Atrophy Comments: Right wrist and digits stiff with pain Mild edema RUE mild atrophy scapula, and upper arm Tender pt at teres minor Nerve assessment Ulnar Nerve: Median Nerve: Right Impaired Radial Nerve: WNL Comments: ULTT positive ? due to inc sx with wrist ext Right hand dysesthesia Sensory Assessment Temperature: Light Touch: WFL Proprioception: Vibration: Comments: Complaint of intermittent paresthesia and hand temp changes Edema Assessment Upper Extremity: Lower Extremity: Comments: Mild right wrist and hand Dexterity Assessment Dexterity: Right Impaired Comments: Unable with FDT. Digits stiff and painful Difficulty with tying shoes, buttons , zip... Special Tests Comments: AROM(PROM) Strength Cervical Cervical Flexion: Cervical Extension: Cervical Lateral Flexion: Cervical Rotation: Comments: WFL Shoulder Flexion: Extension: Abduction: Internal Rotation: External Rotation: Comments: WFL Flexion: Extension: Abduction: Internal Rotation: External Rotation: Comments: Elbow Flexion: Extension: Pronation: Supination: Comments: WFL Flexion: Extension: Pronation: Supination: Comments: Wrist Flexion: R 20 Extension: 20 Ulnar Deviation: 5 Radial Deviation: 5 Comments: Flexion: Extension: Ulnar Deviation: Radial Deviation: Comments: Thumb Thumb CMC Flexion: Thumb MCP Flexion: Thumb IP Flexion: Radial Abduction: Palmar Abduction: [place] (K[place]andji 0-10): 3 Comments: Limited due to pain Digits Index MCP: PIP: DIP: Long MCP: PIP: DIP: Ring MCP: PIP: DIP: Small MCP: PIP: DIP: Comments: Stiff , posturing in claw hand. Pain with A/PROM Gross Grasp: Lateral Pinch: Two-Point Pinch: Three-Jaw Homer: Comments: Deferred Patient Education Primary Language: Malay Area Supervisor Required: No Current Knowledge: Minimal, needs reinforcement Teaching Method: Verbal Education Needs Identified on Evaluation: Disease Information Exercise Pain How did patient/family demonstrate learning? Patient verbalizes Barriers to Learning: None Readiness for Learning: Accepting Who was educated? Patient Comments: Plan of Care Assessment: Pt is a 60 yo male with a recent onset of RUE pain, primarily at shoulder, wrist and hand as well as visable shoulder and upper arm muscle atrophy . Pt reports onset of sx since diagnosed with Covid. Pt will benefit from NCV/EMG to RO possible dx of [place] Syndrome vs possible CTS or a proximal nerve compression ie axillary n. Pt will benefit from OT to address pain, jt stiffness and impaired UE function Pt will benefit from an EMG/NCV to RO nerve compression STG Duration: 3 wks Short Term Goals: Dec compliant of pain with use of TENS Demo indep with self ROM Demo passive digit flexion to palm Inc wrist ext to 45 deg Quick DASH to < 75 pts LTG Duration: 6 wks Spiral Spring Winder Goals: Dec complaint of pain to < 5/10 with daily activities Indep in self pain management techniques Active digit flexion to DPC Wrist ext to >50 deg Right knocker off to >50 lb Indep with UE strengthening ex Full use of right hand with bimanual ADL ie dressing, folding clothes Frequency and Duration: The patient will be seen 3x wk x 6 wks Treatment Plan: Therapeutic Exercise Therapeutic Activity Home Exercise Program Splinting Patient Education ADL Training Ultrasound NMES Paraffin Fluidotherapy MHP Soft Tissue Mobilization Kinesiotaping Electronically Signed By: Nhi Baron OT CHT CLT Reviewed/agree with student documentation: N/A Therapist: Please sign and return to therapist, Thank you for your referral.
--- NOTE | 2021-08-02 14:22 | MHC.OT.DC ---
[address] [phone] F: [phone] Occupational Therapy Discharge Note Provider: Robert Avila MD Diagnosis: Pain in right hand Date of Surgery: Date of Evaluation: 06/28/21 Date of Discharge: 08/02/21 Treatments to Date: 6 Cancellations to Date: 0 No Shows to Date: 0 Discharge Status: Recommend MD Follow-up Discharge Summary: Pain unchanged, severe pain and paresthesia out of neutral wrist orthosis. Low /10 with orthosis on. Pt removing for ther ex and ADL and has trialed weaning from orthosis during the day with inc sx. Con't long and middle finger pain and numbness and significantly impaired function of right non dominant hand. No improvement in sx out of the orthosis since eval. Pt will benefit from EMG/NCV and probable Hand Surgeon consult. Pt not benefiting from OT at this time Electronically Signed By: Nhi Baron OT CHT CLT Reviewed/agree with student documentation: N/A Therapist: Please Sign and return to therapist, thank you for your referral.
== END 2021-08-02 14:24 | disposition home or self-care (01) ==
LOC: HO.OT 13:30
PROVIDERS: PCP Internal Medicine; Visit Provider Internal Medicine
DX: M79.643 Pain in unspecified hand (principal)
CPT/HCPCS: 29125; 97033; 97035; 97110; 97167; 97760

== ENCOUNTER 2021-12-31 03:19 | Emergency (ER) | payer OTHER, MEDICARE, MEDICAID, SELFPAY ==
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
[2021-12-31 03:49] VITALS: BP 163/96; PULSE 54; RESP 18; TEMP 36.4; O2SAT 98; BMI 33.2
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
== END 2021-12-31 05:28 | disposition home or self-care (01) ==
PROVIDERS: Emergency Provider Emergency Medicine; PCP Internal Medicine
DX: S86.911A Strain of unspecified muscle(s) and tendon(s) at lower leg level, right leg, initial encounter (principal); V43.52XA Car driver injured in collision with other type car in traffic accident, initial encounter; Y93.89 Activity, other specified; Y92.414 Local residential or business street as the place of occurrence of the external cause; Y99.9 Unspecified external cause status
CPT/HCPCS: 73564; 99282; 99283

== ENCOUNTER 2022-02-24 09:55 | Outpatient (REF) | payer MEDICARE, MEDICAID, SELFPAY ==
[2022-02-24 10:17] LABS: MANUAL DIFF FLAG NO
[2022-02-24 10:49] LABS: Basophils Absolute Auto 0.1 X10*3/uL (0.0-0.2); Basophils Percent Auto 0.9 % (0-2); Eosinophils Absolute Auto 0.1 X10*3/uL (0.0-0.4); Eosinophils Percent Auto 1.8 % (0-4); Hematocrit 44.4 % (42.0-52.0); Imm Gran Abs Auto 0.03 X10*3/uL (0.00-0.03); Imm Gran Pct Auto 0.5 % (0.0-0.4); Lymphocytes Absolute Auto 1.1 X10*3/uL (1.2-4.9); Lymphocytes Percent Auto 19.8 % (20-40); Mean Corpuscular HGB Conc 33.8 g/dl (31.0-36.0); Mean Corpuscular Hemoglobin 30.1 pg (27.0-33.0); Mean Corpuscular Volume 89.2 fL (80.0-98.0); Mean Platelet Volume 10.8 fL (9.4-12.4); Monocytes Absolute Auto 0.4 X10*3/uL (0.1-1.2); Monocytes Percent Auto 6.7 % (2-11); Neutrophils Percent Auto 70.3 % (45-73); Platelet Count 175 X10*3/uL (160-400); Red Blood Count 4.98 X10*6/uL (4.60-5.80); Red Cell Distribution Width 11.9 % (11.0-16.0); White Blood Count 5.7 X10*3/uL (4.8-10.8)
[2022-02-24 11:23] LABS: Alanine Aminotransferase 22 U/L (0-40); Albumin Level 4.6 g/dL (3.5-5.0); Alkaline Phosphatase 66 U/L (39-117); Anion Gap 14 (12-20); Aspartate Amino Transferase 25 U/L (5-37); Bilirubin Total 0.7 mg/dL (0.0-1.0); Blood Urea Nitrogen 16 mg/dL (9-16); Calcium 9.6 mg/dL (8.4-10.2); Carbon Dioxide 27 mmol/L (22-29); Chloride 104 mmol/L (96-108); Estimated Glomerular Filt Rate > 60; Glucose Random 114 mg/dL (60-115); Potassium 4.9 mmol/L (3.3-5.1); Sodium 140 mmol/L (135-145); Total Protein 7.3 g/dL (6.5-8.0)
== END 2022-02-24 09:56 | disposition home or self-care (01) ==
LOC: HO.LAB 09:55
PROVIDERS: PCP Internal Medicine; Visit Provider Nurse Practitioner
DX: Z01.818 Encounter for other preprocedural examination (principal)
CPT/HCPCS: 36415; 80053; 85025

== ENCOUNTER 2022-05-04 11:10 | Day surgery (SDC) | payer MEDICARE, MEDICAID, SELFPAY ==
--- NOTE | 2022-05-03 09:21 | P.CONAN_ITS ---
Documented by User: Cherry Hickey NP 05/03/22 09:22 HPI - Anesthesia Eval Consult details Narrative: 61yo M for Colonoscopy PMFSH Active Problems Active Problems: All Active Problems (Updated 03/09/22 @ 12:06 by Robert Diallo MD) Encounter for screening colonoscopy (Acute) Pre-op examination (Acute) COVID-19 (Acute) Wrist pain (Acute) Hand pain (Acute) Obesity (Acute) Neuropathy (Acute) Encounter for annual wellness visit (AWV) in Medicare patient (Acute) PTSD (post-traumatic stress disorder) (Acute) Past Medical History Medical History Neuropathy Obesity PTSD (post-traumatic stress disorder) Family History Family History Father Myocardial infarction Mother Hypertension Brother Diabetes Son Neuroblastoma Surgical History Surgical History H/O colonoscopy History of appendectomy History of cystoscopy History of surgery Social History Social History Housing: Apartment Alcohol intake: current Alcohol intake frequency: holidays/special occasions only Patient Tobacco Use Status: Former Tobacco user Tobacco use type: Cigarette e-Cigarette/Vaping Use: Never Used Second Hand Smoke Exposure: No Use of substances other than those prescribed or required for medical reasons: No Advance Directives: No Advance Directives Information Provided: Yes service: Yes Current occupational status: disabled Meds Allergies Allergy/AdvReac Type Severity Reaction Status Date / Time TERE inhibitors Allergy Unknown Cough Uncoded 05/04/22 11:36 Home Medications Medication Instructions Recorded Confirmed Last Taken Type prednisone 2.5 mg tablet 7.5 mg PO DAILY 02/24/22 05/04/22 05/02/22 History ibuprofen 800 mg tablet 800 mg PO TID 03/09/22 05/04/22 04/27/22 History Exam Exam Date and Time: May 03, 2022920 Pertinent Lab Results Pertinent Lab Results: Laboratory Tests 02/24/22 02/24/22 10:15 10:15 WBC 5.7 Hgb 15.0 D Hct 44.4 D Plt Count 175 D Sodium 140 Potassium 4.9 Chloride 104 Carbon Dioxide 27 BUN 16 Creatinine 1.04 Assessment and Plan Assessment Anesthesia Assessment: Chart Reviewed Documented by User: Syed Street MD 05/04/22 13:17 [facility] Past Medical History Medical History Neuropathy Obesity PTSD (post-traumatic stress disorder) Family History Family History Father Myocardial infarction Mother Hypertension Brother Diabetes Son Neuroblastoma Family history of problems with anesthesia: No Surgical History Surgical History H/O colonoscopy History of appendectomy History of cystoscopy History of surgery History of Problems with Anesthesia: No Social History Social History Housing: Apartment Alcohol intake: current Alcohol intake frequency: holidays/special occasions only Patient Tobacco Use Status: Former Tobacco user Tobacco use type: Cigarette e-Cigarette/Vaping Use: Never Used Second Hand Smoke Exposure: No Use of substances other than those prescribed or required for medical reasons: No Advance Directives: No Advance Directives Information Provided: Yes service: Yes Current occupational status: disabled Meds Allergies Allergy/AdvReac Type Severity Reaction Status Date / Time TERE inhibitors Allergy Unknown Cough Uncoded 05/04/22 11:36 Home Medications Medication Instructions Recorded Confirmed Last Taken Type prednisone 2.5 mg tablet 7.5 mg PO DAILY 02/24/22 05/04/22 05/02/22 History ibuprofen 800 mg tablet 800 mg PO TID 03/09/22 05/04/22 04/27/22 History Exam Airway Mallampati Class: II TM Dist: >3cm Neck ROM: Full Loose/Missing/Broken Teeth: No Assessment and Plan Assessment Anesthesia Assessment: Anesthesia Plan Discussed Final Anesthetic Review Family History of Problems with Anesthesia: No History of Problems with Anesthesia: No NPO: Yes ASA Class: III Final Preanesthetic Review: No Changes in Pt Med Stat, Meds/Allgs Chart Reviewed, Consent Obtained/Reviewed and Anes Risks/Benef Reviewed Patient Risk: Intermediate Procedure Risk: Low Anesthetic Plan Anesthetic Plan: MAC: Disposition: Standard PACU
[2022-05-04 11:52] VITALS: BP 138/93; PULSE 91; RESP 16; TEMP 36.6; O2SAT 96; BMI 33.0
[2022-05-04] MEDS: Lactated Ringers 1,000 ML 100 ML IVCONT (12:21)
--- NOTE | 2022-05-04 12:50 | MHC.SHP ---
Pre-Procedural Eval Section A Date of Service: 05/04/22 Section B Chief Complaint: screening Details of Present Illness: 61 y.o M with prev colonoscopy in 2012 which was negative, presents for follow up screening colonoscopy. Present Medications: see Short Stay Collaborative assessment Medical History: Significant History (PTSD, Obesity ) Allergies: Allergies Allergy/AdvReac Type Severity Reaction Status Date / Time TERE inhibitors Allergy Unknown Cough Uncoded 05/04/22 11:36 Review of Systems Review of Systems Comment: 10 point ROS negative Exam Exam Comment: Gen appear: No acute distress, well nourished HEENT: no icterus, Chest: No overt resp distress Abd: soft, nontender, nondistended Psych: Stable affect, answering questions appropriately Neuro: A/Ox3 noted to move all extremities spontaneously Ext: no peripheral edema Plan Diagnosis/Plan: Unchanged I have reviewed the history and physical and performed a pertinent physical examination on my patient. No changes have occurred unless specified.
--- NOTE | 2022-05-04 12:56 | P.OP_ITS ---
Operative Note Operative Note Date of Service: 05/04/22 Narrative: Procedure: Colonoscopy Indication: Screening Endoscopist: Alta Steiner MD Anesthesia Provider: Dr Syed Street Anesthesia type: MAC Instrument: Olympus [id number]-H190L Consent: Indication, risks vs benefits, and alternatives were discussed with the patient who gave written informed consent to proceed. EKG, pulse, pulse oximetry and blood pressure were monitored throughout the procedure. Please see anesthesia flowsheet. Procedure: The patient was brought to the procedure room and placed in the left lateral decubitus position. IV medications were administered by the anesthesia provider in attendance. A digital rectal exam was performed which was normal. The colonoscope was then inserted through the anus and advanced through the colon to the cecum at 80 cm,and terminal ileum. Mucosa was carefully examined under high definition white light as the instrument was slowly withdrawn in a retrograde panoramic fashion. Retroflexion was performed in ascending colon and rectum. The procedure was not difficult. There were no immediate obvious complications. The quality of the prep was BBPS: 3+2+3 = adequate Withdrawal time 13 minutes. Limitations: No limitations. Findings: Mucosa: Normal to cecum and terminal ileum. Protruding lesions: * Medium internal hemorrhoids without stigmata of recent bleeding. Excavated lesions: * Small mouthed diverticula of left sided colon. Impression: 1. Normal colon mucosa 2. Mild diverticulosis 3. Internal hemorrhoids Recommendations: - Repeat colonoscopy in 10 years for colorectal cancer screening
[2022-05-04 13:32] VITALS: BP 100/56; PULSE 78; RESP 18; TEMP 36.6; O2SAT 93
[2022-05-04 13:47] VITALS: BP 120/74; PULSE 69; RESP 16; O2SAT 93
[2022-05-04 14:02] VITALS: BP 122/72; PULSE 86; RESP 16; TEMP 36.7; O2SAT 99
== END 2022-05-04 14:32 | disposition home or self-care (01) ==
PROVIDERS: PCP Internal Medicine; Visit Provider Internal Medicine
PROC: 0DJD8ZZ Inspection of Lower Intestinal Tract, Via Natural or Artificial Opening Endoscopic (ICD-10-PCS; CPT 45378; principal; 2022-05-04 12:50)
DX: Z12.11 Encounter for screening for malignant neoplasm of colon (principal); K57.30 Diverticulosis of large intestine without perforation or abscess without bleeding; K64.8 Other hemorrhoids; F43.10 Post-traumatic stress disorder, unspecified; E66.9 Obesity, unspecified; Z68.33 Body mass index [BMI] 33.0-33.9, adult; Z79.1 Long term (current) use of non-steroidal anti-inflammatories (NSAID); Z79.52 Long term (current) use of systemic steroids; Z88.8 Allergy status to other drugs, medicaments and biological substances; Z87.891 Personal history of nicotine dependence; Z86.16 Personal history of COVID-19
CPT/HCPCS: G0121; J3010

== ENCOUNTER → 2022-05-18 07:42 | Outpatient (BNVA) | payer MEDICARE, MEDICAID, SELFPAY | PROVIDERS: PCP Internal Medicine; Referring Provider Internal Medicine; Visit Provider Nurse Practitioner | DX: Z71.2 Person consulting for explanation of examination or test findings (principal) | CPT/HCPCS: 99212 ==

== ENCOUNTER 2022-12-15 06:14 | Outpatient (REF) | payer MEDICARE, MEDICAID, SELFPAY ==
[2022-12-15 06:32] LABS: MANUAL DIFF FLAG NO
[2022-12-15 07:29] LABS: Basophils Absolute Auto 0.1 X10*3/uL (0.0-0.2); Basophils Percent Auto 0.9 % (0-2); Eosinophils Absolute Auto 0.2 X10*3/uL (0.0-0.4); Eosinophils Percent Auto 4.1 % (0-4); Hematocrit 45.2 % (42.0-52.0); Hemoglobin 15.2 g/dl (14.0-18.0); Imm Gran Abs Auto 0.01 X10*3/uL (0.00-0.03); Imm Gran Pct Auto 0.2 % (0.0-0.4); Lymphocytes Absolute Auto 1.8 X10*3/uL (1.2-4.9); Lymphocytes Percent Auto 33.8 % (20-40); Mean Corpuscular HGB Conc 33.6 g/dl (31.0-36.0); Mean Corpuscular Hemoglobin 29.6 pg (27.0-33.0); Mean Corpuscular Volume 87.9 fL (80.0-98.0); Mean Platelet Volume 10.7 fL (9.4-12.4); Monocytes Absolute Auto 0.4 X10*3/uL (0.1-1.2); Neutrophils Absolute Auto 2.8 x10*3/uL (2.0-8.3); Platelet Count 198 X10*3/uL (160-400); Red Blood Count 5.14 X10*6/uL (4.60-5.80); Red Cell Distribution Width 12.1 % (11.0-16.0); White Blood Count 5.4 X10*3/uL (4.8-10.8)
[2022-12-15 08:12] LABS: Alanine Aminotransferase 24 U/L (0-40); Albumin Level 4.2 g/dL (3.5-5.0); Alkaline Phosphatase 61 U/L (39-117); Anion Gap 13 (12-20); Aspartate Amino Transferase 27 U/L (5-37); Bilirubin Total 1.2 mg/dL (0.0-1.0); Blood Urea Nitrogen 19 mg/dL (9-16); Calcium 9.8 mg/dL (8.4-10.2); Carbon Dioxide 25 mmol/L (22-29); Chloride 104 mmol/L (96-108); Cholesterol 194 mg/dL; Estimated Glomerular Filt Rate > 60; Glucose Fasting 102 mg/dL (60-99); HDL Cholesterol 59 mg/dL; LDL Cholesterol Calculated 125 mg/dl; Potassium 4.3 mmol/L (3.3-5.1); Sodium 138 mmol/L (135-145); Total Protein 7.3 g/dL (6.5-8.0); Triglycerides 50 mg/dL
[2022-12-15 08:29] LABS: Prostate Specific Antigen Scr 3.12 ng/mL (<0.05-4.0)
== END 2022-12-15 06:15 | disposition home or self-care (01) ==
LOC: HO.LAB 06:14
PROVIDERS: PCP Internal Medicine; Visit Provider Internal Medicine
DX: Z00.00 Encounter for general adult medical examination without abnormal findings (principal); Z12.5 Encounter for screening for malignant neoplasm of prostate; N28.9 Disorder of kidney and ureter, unspecified; D64.9 Anemia, unspecified; E78.5 Hyperlipidemia, unspecified
CPT/HCPCS: 36415; 80053; 80061; 84153; 85025

== ENCOUNTER 2023-01-18 10:46 | Outpatient (AMB) | payer MEDICARE, MEDICAID, SELFPAY ==
[2023-01-18 10:50] VITALS: BP 144/100; PULSE 68; O2SAT 97; BMI 33.1
--- NOTE | 2023-01-18 10:50 | MHC.PC.OV ---
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 Car Required: No Accompanied by: Self / Same As Patient Allergies TERE inhibitors Allergy (Unknown, Uncoded 06/09/22 10:40) Cough Medication List - Last Reconciled 01/18/23 by Robert Diallo MD ibuprofen 800 mg PO TID prednisone 1 mg PO DAILY Tobacco use date assessed: 01/18/23 Dental Screening Dental Screen Date: 01/18/23 Did you have a dental visit in the last 12 months?: Yes Did you have a dental problem in the last 6 months where you did not have access to dental care?: No Was dental information given to patient?: Patient has dentist HPI high bp HPI Details elevated BP at dentist today; has been taking ibuprofen [facility] Medical History (Updated 12/08/22 @ 09:02 by Robert Diallo MD) Neuropathy Obesity PTSD (post-traumatic stress disorder) Surgical History H/O colonoscopy History of appendectomy History of cystoscopy History of surgery Family History Father Myocardial infarction Mother Hypertension Brother Diabetes Son Neuroblastoma Social History Housing: Apartment Alcohol intake: never Patient Tobacco Use Status: Former Tobacco user Tobacco use type: Cigarette e-Cigarette/Vaping Use: Never Used Second Hand Smoke Exposure: No service: Yes Current occupational status: disabled Cognitive needs: No Hearing needs: No Vision needs: No Questionnaire PHQ-9 Over the last 2 weeks, how often have you been bothered by any of the following problems? 1. Little interest or pleasure in doing things: several days 2. Feeling down, depressed, or hopeless: several days 3. Trouble falling or staying asleep, or sleeping too much: several days 4. Feeling tired or having little energy: not at all 5. Poor appetite or overeating: several days 6. Feeling bad about yourself - or that you are a failure or have let yourself or your family down: several days 7. Trouble concentrating on things, such as reading the newspaper or watching television: several days 8. Moving or speaking so slowly that other people could have noticed. Or the opposite - being so fidgety or restless that you have been moving around a lot more than usual: several days 9. Thoughts that you would be better off or of hurting yourself in some way: not at all Total score: 7 Depression Screening Interpretation: Negative 59184 - PHQ-9 Billing: Yes Source: Developed by Drs. Live Hernandez, Indigo Kamara, Wesley Duron and colleagues, with an educational linda from [employer]. Thrive Questionnaire Date Thrive assessed: 01/18/23 I am a: Patient What is your living situation today?: I have a steady place to live Within the past 12 months, did the food you bought not last and you didn't have the money to get more?: Never true Within the past 12 months, did you worry whether your food would run out before you got money to buy more?: Never true Do you have trouble paying for medicines?: No Do you have trouble getting transportation to medical appointments?: No Do you have trouble paying your heating and electricity bill?: No Do you have trouble taking care of your child, family member or friend?: No Do you have trouble with day-to-day activities such as bathing, preparing meals, shopping, managing finances, etc.?: No Are you currently unemployed and looking for a job?: No Are you interested in more education?: No Please select the resources that you would like help with: None Currently or been in a relationship where the following occur: no concerns reported AUDIT C Alcohol Use Questionnaire (AUDIT-C) 1. How often do you have a drink containing alcohol?: Never Total Score: 0 Score Reviewed/Action Taken: Yes DUTCH-7 AMB Questionnaire DUTCH-7 Date DUTCH - 7 assessed: 01/18/23 Feeling nervous, anxious, or on edge: 0 = Not at all Not being able to stop or control worryin = Not at all Worrying too much about different things: 0 = Not at all Trouble relaxin = Not at all Being so restless that it is hard to sit still: 0 = Not at all Becoming easily annoyed or irritable: 0 = Not at all Feeling afraid as if something awful might happen: 0 = Not at all Total DUTCH-7 score (0-4 normal; 5-9 mild; 10-14 moderate; 15-21 severe): 0 Source: Developed by Drs. Live Hernandez, Indigo Kamara, Wesley Duron and colleagues, with an educational linda from [employer]. DUTCH-7 Assessment Billing DUTCH-7 Assessment Tool: DUTCH-7 Assessment 37653 Review of Systems Const Denies chills, Denies headache(s) and Denies weight loss ENT Denies headache(s) Card Denies chest pain, Denies syncope, Denies irregular heart rhythm and Denies dyspnea Resp Denies chest congestion, Denies cough and Denies dyspnea GI Denies abdominal pain, Denies change in stool character, Denies nausea and Denies vomiting Musc Denies deformity and Denies joint swelling Neuro Denies syncope and Denies headache(s) Physical exam (Primary Care) Vital Signs: Last Vital Signs Pulse 68 01/18/23 10:50 BP 144/100 H 01/18/23 10:50 Pulse Ox 97 01/18/23 10:50 Oxygen Delivery Method Room Air 01/18/23 10:50 BMI result Body Mass Index 33.1 Tobacco/Smoking Status: Tobacco use Status Tobacco use date assessed 01/18/23 01/18/23 10:56 Patient Tobacco Use Status Former Tobacco user 01/18/23 10:56 Tobacco use type Cigarette 01/18/23 10:56 e-Cigarette/Vaping Use Never Used 01/18/23 10:56 PHQ-9: PHQ-9 Score PHQ-9: Total score 7 01/18/23 10:56 Depression Screening Interpretation: Negative Thrive Assessment: Date of Thrive Assessment Date Thrive assessed 01/18/23 01/18/23 10:56 Currently or been in a relationship where the following occur: no concerns reported Const General: cooperative, comfortable and no acute distress Resp Effort & Inspection: normal respiratory effort Auscultation: clear to auscultation bilaterally Percussion: percussion normal Cardio Jugular venous distension: no JVD Rate: regular rate Rhythm: regular rhythm GI Inspection: Yes normal to inspection Assessment and Plan Assessment & Plan (1) Elevated BP without diagnosis of hypertension: Code(s): R03.0 - Elevated blood-pressure reading, without diagnosis of hypertension Plan: stop ibuprofen; low na Coding Level of Care Code Est Pt Level 3 (45172) Diagnoses Elevated BP without diagnosis of hypertension R03.0 Additional Codes DUTCH-7 Assessment Billing - DUTCH-7 Assessment Tool: DUTCH-7 Assessment 95303 ([id number])
== END 2023-01-18 11:06 | disposition home or self-care (01) ==
PROVIDERS: PCP Internal Medicine; Visit Provider Internal Medicine
DX: R03.0 Elevated blood-pressure reading, without diagnosis of hypertension (principal)
CPT/HCPCS: 99213

== ENCOUNTER 2023-01-25 10:17 | Outpatient (AMB) | payer MEDICARE, MEDICAID, SELFPAY ==
[2023-01-25 10:21] VITALS: BP 106/68; PULSE 64; O2SAT 99; BMI 31.7
--- NOTE | 2023-01-25 10:21 | MHC.PC.OV ---
Vital Signs 01/25/23 10:21 Height 5 ft 9 in Weight 215 lb BMI 31.7 BP 106/68 Blood Pressure Location Lt brachial Position Sitting Pulse 64 Pulse Source Pulse Oximeter Temp Source Skin Pulse Oximetry (%) 99 Oxygen Delivery Method Room Air Intake Visit Reasons: 1 week f/u Fiberglass Laminator Required: No Allergies TERE inhibitors Allergy (Unknown, Uncoded 01/25/23 10:22) Cough Medication List - Last Reconciled 01/25/23 by Robert Diallo MD ibuprofen 800 mg PO TID prednisone 1 mg PO DAILY Tobacco use date assessed: 01/25/23 Dental Screening Dental Screen Date: 01/25/23 HPI 1 week f/u HPI Details elevated bp; better since stopped ibuprofen PFSH Medical History (Updated 12/08/22 @ 09:02 by Robert Diallo MD) Neuropathy Obesity PTSD (post-traumatic stress disorder) Surgical History H/O colonoscopy History of appendectomy History of cystoscopy History of surgery Family History Father Myocardial infarction Mother Hypertension Brother Diabetes Son Neuroblastoma Social History Housing: Apartment Alcohol intake: never Patient Tobacco Use Status: Former Tobacco user Tobacco use type: Cigarette e-Cigarette/Vaping Use: Never Used Second Hand Smoke Exposure: No service: Yes Current occupational status: disabled Cognitive needs: No Hearing needs: No Vision needs: No Questionnaire PHQ-9 Over the last 2 weeks, how often have you been bothered by any of the following problems? 1. Little interest or pleasure in doing things: several days 2. Feeling down, depressed, or hopeless: several days 3. Trouble falling or staying asleep, or sleeping too much: several days 4. Feeling tired or having little energy: not at all 5. Poor appetite or overeating: several days 6. Feeling bad about yourself - or that you are a failure or have let yourself or your family down: several days 7. Trouble concentrating on things, such as reading the newspaper or watching television: several days 8. Moving or speaking so slowly that other people could have noticed. Or the opposite - being so fidgety or restless that you have been moving around a lot more than usual: several days 9. Thoughts that you would be better off or of hurting yourself in some way: not at all Total score: 7 Depression Screening Interpretation: Negative 15063 - PHQ-9 Billing: Yes Source: Developed by Drs. Live Hernandez, Indigo Kamara, Wesley Duron and colleagues, with an educational linda from [employer]. Thrive Questionnaire Date Thrive assessed: 01/18/23 Currently or been in a relationship where the following occur: no concerns reported AUDIT C Alcohol Use Questionnaire (AUDIT-C) 1. How often do you have a drink containing alcohol?: Never Total Score: 0 Score Reviewed/Action Taken: Yes DUTCH-7 AMB Questionnaire DUTCH-7 Date DUTCH - 7 assessed: 01/18/23 Feeling nervous, anxious, or on edge: 0 = Not at all Not being able to stop or control worryin = Not at all Worrying too much about different things: 0 = Not at all Trouble relaxin = Not at all Being so restless that it is hard to sit still: 0 = Not at all Becoming easily annoyed or irritable: 0 = Not at all Feeling afraid as if something awful might happen: 0 = Not at all Total DUTCH-7 score (0-4 normal; 5-9 mild; 10-14 moderate; 15-21 severe): 0 Source: Developed by Drs. Live Hernandez, Indigo Kamara, Wesley Duron and colleagues, with an educational linda from [employer]. DUTCH-7 Assessment Billing DUTCH-7 Assessment Tool: DUTCH-7 Assessment 61596 Review of Systems Const Denies chills, Denies headache(s) and Denies weight loss ENT Denies headache(s) Card Denies chest pain, Denies syncope, Denies irregular heart rhythm and Denies dyspnea Resp Denies chest congestion, Denies cough and Denies dyspnea GI Denies abdominal pain, Denies change in stool character, Denies nausea and Denies vomiting Musc Denies deformity and Denies joint swelling Neuro Denies syncope and Denies headache(s) Physical exam (Primary Care) Vital Signs: Last Vital Signs Pulse 64 01/25/23 10:21 BP 106/68 01/25/23 10:21 Pulse Ox 99 01/25/23 10:21 Oxygen Delivery Method Room Air 01/25/23 10:21 BMI result Body Mass Index 31.7 Tobacco/Smoking Status: Tobacco use Status Tobacco use date assessed 01/25/23 01/25/23 10:22 Patient Tobacco Use Status Former Tobacco user 01/25/23 10:22 Tobacco use type Cigarette 01/25/23 10:22 e-Cigarette/Vaping Use Never Used 01/25/23 10:22 PHQ-9: PHQ-9 Score PHQ-9: Total score 7 01/25/23 10:22 Depression Screening Interpretation: Negative Thrive Assessment: Date of Thrive Assessment Date Thrive assessed 01/18/23 01/25/23 10:22 Currently or been in a relationship where the following occur: no concerns reported Const General: cooperative, comfortable and no acute distress Resp Effort & Inspection: normal respiratory effort Auscultation: clear to auscultation bilaterally Percussion: percussion normal Cardio Jugular venous distension: no JVD Rate: regular rate Rhythm: regular rhythm GI Inspection: Yes normal to inspection Assessment and Plan Assessment & Plan (1) Elevated BP without diagnosis of hypertension: Code(s): R03.0 - Elevated blood-pressure reading, without diagnosis of hypertension Plan: resolved Coding Level of Care Code Est Pt Level 3 (82698) Diagnoses Elevated BP without diagnosis of hypertension R03.0 Additional Codes DUTCH-7 Assessment Billing - DUTCH-7 Assessment Tool: DUTCH-7 Assessment 63180 ([id number])
== END 2023-01-25 10:36 | disposition home or self-care (01) ==
PROVIDERS: PCP Internal Medicine; Visit Provider Internal Medicine
DX: R03.0 Elevated blood-pressure reading, without diagnosis of hypertension (principal)
CPT/HCPCS: 99213

== ENCOUNTER 2023-04-30 08:24 | Outpatient (AMB) | payer MEDICARE, MEDICAID, SELFPAY ==
[2023-04-30 08:37] VITALS: BP 156/90; PULSE 55; O2SAT 99; BMI 33.4
--- NOTE | 2023-04-30 08:37 | MHC.PC.OV ---
Vital Signs 04/30/23 08:37 Height 5 ft 9 in Weight 226 lb BMI 33.4 BP 156/90 H Blood Pressure Location Lt brachial Position Sitting Pulse 55 Pulse Source Pulse Oximeter Pulse Oximetry (%) 99 Oxygen Delivery Method Room Air Intake Visit Reasons: 3mth f/u Allergies TERE inhibitors Allergy (Unknown, Uncoded 04/30/23 08:37) Cough Medication List - Last Reconciled 04/30/23 by Robert Diallo MD ibuprofen 800 mg PO TID prednisone 1 mg PO DAILY Tobacco use date assessed: 01/25/23 Dental Screening Dental Screen Date: 04/30/23 Did you have a dental visit in the last 12 months?: Yes Did you have a dental problem in the last 6 months where you did not have access to dental care?: No Was dental information given to patient?: Patient has dentist HPI 3mth f/u HPI Details [place] for a few months PFSH Medical History Obesity Neuropathy PTSD (post-traumatic stress disorder) Surgical History H/O colonoscopy History of surgery History of cystoscopy History of appendectomy Family History Father Myocardial infarction Mother Hypertension Brother Diabetes Son Neuroblastoma Social History Housing: Apartment Alcohol intake: never Patient Tobacco Use Status: Former Tobacco user Tobacco use type: Cigarette e-Cigarette/Vaping Use: Never Used Second Hand Smoke Exposure: No service: Yes Current occupational status: disabled Cognitive needs: No Hearing needs: No Vision needs: No Questionnaire PHQ-9 Over the last 2 weeks, how often have you been bothered by any of the following problems? 1. Little interest or pleasure in doing things: several days 2. Feeling down, depressed, or hopeless: several days 3. Trouble falling or staying asleep, or sleeping too much: several days 4. Feeling tired or having little energy: not at all 5. Poor appetite or overeating: several days 6. Feeling bad about yourself - or that you are a failure or have let yourself or your family down: several days 7. Trouble concentrating on things, such as reading the newspaper or watching television: several days 8. Moving or speaking so slowly that other people could have noticed. Or the opposite - being so fidgety or restless that you have been moving around a lot more than usual: several days 9. Thoughts that you would be better off or of hurting yourself in some way: not at all Total score: 7 Depression Screening Interpretation: Negative Depression Screening Done: Yes 05580 - PHQ-9 Billing: Yes Source: Developed by Drs. Live Hernandez, Wesley Dos Santos and colleagues, with an educational linda from [employer]. Thrive Questionnaire Date Thrive assessed: 01/18/23 AUDIT C Alcohol Use Questionnaire (AUDIT-C) 1. How often do you have a drink containing alcohol?: Never Total Score: 0 Score Reviewed/Action Taken: Yes DUTCH-7 AMB Questionnaire DUTCH-7 Date DUTCH - 7 assessed: 01/18/23 Source: Developed by Drs. Live Hernandez, Wesley Dos Santos and colleagues, with an educational linda from [employer]. Review of Systems Const Denies chills, Denies headache(s) and Denies weight loss ENT Denies headache(s) Card Denies chest pain, Denies syncope, Denies irregular heart rhythm and Denies dyspnea Resp Denies chest congestion, Denies cough and Denies dyspnea GI Denies abdominal pain, Denies change in stool character, Denies nausea and Denies vomiting Musc Denies deformity and Denies joint swelling Neuro Denies syncope and Denies headache(s) Physical exam (Primary Care) Vital Signs: Last Vital Signs Pulse 55 04/30/23 08:37 BP 156/90 H 04/30/23 08:37 Pulse Ox 99 04/30/23 08:37 Oxygen Delivery Method Room Air 04/30/23 08:37 BMI result Body Mass Index 33.4 Tobacco/Smoking Status: Tobacco use Status Tobacco use date assessed 01/25/23 04/30/23 08:41 Patient Tobacco Use Status Former Tobacco user 04/30/23 08:41 Tobacco use type Cigarette 04/30/23 08:41 e-Cigarette/Vaping Use Never Used 04/30/23 08:41 PHQ-9: PHQ-9 Score PHQ-9: Total score 7 04/30/23 08:41 Depression Screening Interpretation: Negative Thrive Assessment: Date of Thrive Assessment Date Thrive assessed 01/18/23 04/30/23 08:41 Const General: cooperative, comfortable and no acute distress HENMT Other: bilat cerumen imp Neck Neck: Yes normal visual inspection Chest Chest palpation & inspection: normal inspection of the chest Resp Effort & Inspection: normal respiratory effort Assessment and Plan Assessment & Plan (1) Cerumen debris on tympanic membrane: Code(s): H61.20 - Impacted cerumen, unspecified ear Plan: ref ent Orders: Referrals Ear/Nose/Throat Referral H61.20 - Impacted cerumen, unspecified ear Coding Level of Care Code Est Pt Level 3 (93160) Diagnoses Cerumen debris on tympanic membrane H61.20
== END 2023-04-30 09:02 | disposition home or self-care (01) ==
PROVIDERS: PCP Internal Medicine; Visit Provider Internal Medicine
DX: H61.23 Impacted cerumen, bilateral (principal)
CPT/HCPCS: 99213

== ENCOUNTER 2023-08-28 10:26 | Outpatient (AMB) | payer MEDICARE, MEDICAID, SELFPAY ==
[2023-08-28 10:44] VITALS: BP 158/96; PULSE 55; O2SAT 98; BMI 33.5
--- NOTE | 2023-08-28 10:44 | A.OFFPC_ITS ---
Vital Signs 08/28/23 10:44 Height 5 ft 9 in Weight 227 lb BMI 33.5 BP 158/96 H Blood Pressure Location Lt brachial Position Sitting Pulse 55 Pulse Source Pulse Oximeter Pulse Oximetry (%) 98 Oxygen Delivery Method Room Air Intake Visit Reasons: 6mth f/u Cartridge Filler Required: No Hvac/R Instructor: Not Required per policy Accompanied by: Self / Same As Patient Allergies TERE inhibitors Allergy (Unknown, Uncoded 08/28/23 10:44) Cough Medication List - Last Reconciled 08/28/23 by Robert Diallo MD hydrochlorothiazide 25 mg PO DAILY ibuprofen 800 mg PO TID prednisone 1 mg PO DAILY Tobacco use date assessed: 08/28/23 Dental Screening Dental Screen Date: 08/28/23 Did you have a dental visit in the last 12 months?: Yes Did you have a dental problem in the last 6 months where you did not have access to dental care?: No Was dental information given to patient?: Patient has dentist HPI 6mth f/u HPI Details bp has been elevated PFSH Medical History Obesity Neuropathy PTSD (post-traumatic stress disorder) Surgical History H/O colonoscopy History of surgery History of cystoscopy History of appendectomy Family History Father Myocardial infarction Mother Hypertension Brother Diabetes Son Neuroblastoma Social History Housing: Apartment Alcohol intake: never Patient Tobacco Use Status: Former Tobacco user Tobacco use type: Cigarette e-Cigarette/Vaping Use: Never Used Second Hand Smoke Exposure: No service: Yes Current occupational status: disabled Cognitive needs: No Hearing needs: No Vision needs: No Questionnaire PHQ-9 Over the last 2 weeks, how often have you been bothered by any of the following problems? 1. Little interest or pleasure in doing things: several days 2. Feeling down, depressed, or hopeless: several days 3. Trouble falling or staying asleep, or sleeping too much: several days 4. Feeling tired or having little energy: not at all 5. Poor appetite or overeating: several days 6. Feeling bad about yourself - or that you are a failure or have let yourself or your family down: several days 7. Trouble concentrating on things, such as reading the newspaper or watching television: several days 8. Moving or speaking so slowly that other people could have noticed. Or the opposite - being so fidgety or restless that you have been moving around a lot more than usual: several days 9. Thoughts that you would be better off or of hurting yourself in some way: not at all Total score: 7 Depression Screening Interpretation: Negative Depression Screening Done: Yes 13204 - PHQ-9 Billing: Yes Source: Developed by Drs. Live Hernandez, Indigo Kamara, Wesley Duron and colleagues, with an educational linda from [employer]. Thrive Questionnaire Date Thrive assessed: 08/28/23 I am a: Patient What is your living situation today?: I have a steady place to live Within the past 12 months, did the food you bought not last and you didn't have the money to get more?: Never true Within the past 12 months, did you worry whether your food would run out before you got money to buy more?: Never true Do you have trouble paying for medicines?: No Do you have trouble getting transportation to medical appointments?: No Do you have trouble paying your heating and electricity bill?: No Do you have trouble taking care of your child, family member or friend?: No Do you have trouble with day-to-day activities such as bathing, preparing meals, shopping, managing finances, etc.?: No Are you currently unemployed and looking for a job?: No Are you interested in more education?: No Please select the resources that you would like help with: None THRIVE Score: 0 AUDIT C Alcohol Use Questionnaire (AUDIT-C) 1. How often do you have a drink containing alcohol?: Never Total Score: 0 Score Reviewed/Action Taken: Yes DUTCH-7 AMB Questionnaire DUTCH-7 Date DUTCH - 7 assessed: 08/28/23 Feeling nervous, anxious, or on edge: 2 = More than half the days Not being able to stop or control worryin = Not at all Worrying too much about different things: 2 = More than half the days Trouble relaxin = Several days Being so restless that it is hard to sit still: 2 = More than half the days Becoming easily annoyed or irritable: 0 = Not at all Feeling afraid as if something awful might happen: 0 = Not at all Total DUTCH-7 score (0-4 normal; 5-9 mild; 10-14 moderate; 15-21 severe): 7 Source: Developed by Drs. Live Hernandez, Indigo Kamara, Wesley Duron and colleagues, with an educational linda from [employer]. DUTCH-7 Assessment Billing DUTCH-7 Assessment Tool: DUTCH-7 Assessment 29943 Review of Systems Const Denies chills, Denies headache(s) and Denies weight loss ENT Denies headache(s) Card Denies chest pain, Denies syncope, Denies irregular heart rhythm and Denies dyspnea Resp Denies chest congestion, Denies cough and Denies dyspnea GI Denies abdominal pain, Denies change in stool character, Denies nausea and Denies vomiting Musc Denies deformity and Denies joint swelling Neuro Denies syncope and Denies headache(s) Physical exam (Primary Care) Vital Signs: Last Vital Signs Pulse 55 08/28/23 10:44 BP 158/96 H 08/28/23 10:44 Pulse Ox 98 08/28/23 10:44 Oxygen Delivery Method Room Air 08/28/23 10:44 BMI result Body Mass Index 33.5 Tobacco/Smoking Status: Tobacco use Status Tobacco use date assessed 08/28/23 08/28/23 10:45 Patient Tobacco Use Status Former Tobacco user 08/28/23 10:45 Tobacco use type Cigarette 08/28/23 10:45 e-Cigarette/Vaping Use Never Used 08/28/23 10:45 PHQ-9: PHQ-9 Score PHQ-9: Total score 7 08/28/23 10:45 Depression Screening Interpretation: Negative Thrive Assessment: Date of Thrive Assessment Date Thrive assessed 08/28/23 08/28/23 10:45 Const General: cooperative, comfortable, no acute distress and alert Neck Neck: Yes no lymphadenopathy Thyroid: Thyroid normal Resp Effort & Inspection: normal respiratory effort Auscultation: clear to auscultation bilaterally Percussion: percussion normal Cardio Jugular venous distension: no JVD Palpation: normal PMI Rate: regular rate Rhythm: regular rhythm Heart sounds: S1 normal heart sound present and S2 normal heart sound present GI Inspection: Yes normal to inspection Palpation (GI): No hepatosplenomegaly present Skin General skin exam: no rashes or lesions noted Extrem General: Yes no clubbing, cyanosis or edema Assessment and Plan Assessment & Plan (1) Hypertension: Code(s): I10 - Essential (primary) hypertension Plan: labs and start rx Orders: Orders Complete Blood Count Auto Diff Today D64.9 - Anemia, unspecified Lipid Panel Today E78.5 - Hyperlipidemia, unspecified Comprehensive Vass. Panel Fast Today N28.9 - Disorder of kidney and ureter, unspecified Thyroid Stimulating Hormone Today E03.9 - Hypothyroidism, unspecified Medications: New hydrochlorothiazide 25 mg PO DAILY 90 tabs 8RF Coding Level of Care Code Est Pt Level 3 (14954) Diagnoses Hypertension I10 Additional Codes DUTCH-7 Assessment Billing - DUTCH-7 Assessment Tool: DUTCH-7 Assessment 23136 ([id number])
== END 2023-08-28 10:58 | disposition home or self-care (01) ==
PROVIDERS: PCP Internal Medicine; Visit Provider Internal Medicine
DX: I10 Essential (primary) hypertension (principal)
CPT/HCPCS: 99213

== ENCOUNTER 2023-08-29 08:23 | Outpatient (REF) | payer MEDICARE, MEDICAID, SELFPAY ==
[2023-08-29 08:44] LABS: MANUAL DIFF FLAG NO
[2023-08-29 09:13] LABS: Basophils Absolute Auto 0.1 X10*3/uL (0.0-0.2); Basophils Percent Auto 0.8 % (0-2); Eosinophils Absolute Auto 0.2 X10*3/uL (0.0-0.4); Eosinophils Percent Auto 3.8 % (0-4); Hematocrit 44.5 % (42.0-52.0); Hemoglobin 15.5 g/dl (14.0-18.0); Imm Gran Abs Auto 0.02 X10*3/uL (0.00-0.03); Imm Gran Pct Auto 0.3 % (0.0-0.4); Lymphocytes Absolute Auto 1.7 X10*3/uL (1.2-4.9); Lymphocytes Percent Auto 28.1 % (20-40); Mean Corpuscular HGB Conc 34.8 g/dl (31.0-36.0); Mean Corpuscular Volume 86.2 fL (80.0-98.0); Mean Platelet Volume 10.5 fL (9.4-12.4); Monocytes Absolute Auto 0.6 X10*3/uL (0.1-1.2); Monocytes Percent Auto 9.2 % (2-11); Neutrophils Absolute Auto 3.5 x10*3/uL (2.0-8.3); Neutrophils Percent Auto 57.8 % (45-73); Platelet Count 169 X10*3/uL (160-400); Red Blood Count 5.16 X10*6/uL (4.60-5.80); White Blood Count 6.1 X10*3/uL (4.8-10.8)
[2023-08-29 09:54] LABS: Alanine Aminotransferase 25 U/L (0-40); Albumin Level 4.6 g/dL (3.5-5.0); Alkaline Phosphatase 73 U/L (39-117); Anion Gap 13 (12-20); Aspartate Amino Transferase 29 U/L (5-37); Bilirubin Total 1.1 mg/dL (0.0-1.0); Blood Urea Nitrogen 15 mg/dL (9-16); Calcium 9.9 mg/dL (8.4-10.2); Carbon Dioxide 28 mmol/L (22-29); Chloride 103 mmol/L (96-108); Cholesterol 183 mg/dL (<200); Estimated Glomerular Filt Rate > 60; Glucose Fasting 82 mg/dL (60-99); HDL Cholesterol 61 mg/dL (>40); LDL Cholesterol Calculated 111 mg/dL (<100); Potassium 4.4 mmol/L (3.3-5.1); Sodium 140 mmol/L (135-145); Total Protein 7.7 g/dL (6.5-8.0); Triglycerides 57 mg/dL (<150)
[2023-08-29 10:11] LABS: Thyroid Stimulating Hormone 1.73 uIU/mL (0.32-4.0)
== END 2023-08-29 08:24 | disposition home or self-care (01) ==
LOC: HO.LAB 08:23
PROVIDERS: PCP Internal Medicine; Visit Provider Internal Medicine
DX: E78.5 Hyperlipidemia, unspecified (principal); N28.9 Disorder of kidney and ureter, unspecified; E03.9 Hypothyroidism, unspecified; D64.9 Anemia, unspecified
CPT/HCPCS: 36415; 80053; 80061; 84443; 85025

== ENCOUNTER 2023-10-02 10:17 | Outpatient (AMB) | payer MEDICARE, MEDICAID, SELFPAY ==
[2023-10-02 10:20] VITALS: BP 140/80; PULSE 59; O2SAT 99; BMI 33.1
--- NOTE | 2023-10-02 10:20 | A.OFFPC_ITS ---
Vital Signs 10/02/23 10:20 Height 5 ft 9 in Weight 224 lb BMI 33.1 BP 140/80 H Blood Pressure Location Lt brachial Position Sitting Pulse 59 Pulse Source Pulse Oximeter Pulse Oximetry (%) 99 Oxygen Delivery Method Room Air Intake Visit Reasons: 1 month f/u [employer] Required: No Internal Review And Audit Compliance: Not Required per policy Accompanied by: Self / Same As Patient Allergies TERE inhibitors Allergy (Unknown, Uncoded 10/02/23 10:20) Cough Medication List - Last Reconciled 10/02/23 by Robert Diallo MD hydrochlorothiazide 25 mg PO DAILY ibuprofen 800 mg PO TID prednisone 1 mg PO DAILY Tobacco use date assessed: 08/28/23 Dental Screening Dental Screen Date: 08/28/23 HPI 1 month f/u HPI Details HTN on Rx; BP better PFSH Medical History Obesity Neuropathy PTSD (post-traumatic stress disorder) Surgical History H/O colonoscopy History of surgery History of cystoscopy History of appendectomy Family History Father Myocardial infarction Mother Hypertension Brother Diabetes Son Neuroblastoma Social History Housing: Apartment Alcohol intake: never Patient Tobacco Use Status: Former Tobacco user Tobacco use type: Cigarette e-Cigarette/Vaping Use: Never Used Second Hand Smoke Exposure: No service: Yes Current occupational status: disabled Cognitive needs: No Hearing needs: No Vision needs: No Questionnaire Thrive Questionnaire Date Thrive assessed: 08/28/23 DUTCH-7 AMB Questionnaire DUTCH-7 Date DUTCH - 7 assessed: 08/28/23 Source: Developed by Drs. Live Hernandez, Indigo Kamara, Wesley Duron and colleagues, with an educational linda from [employer]. Review of Systems Const Denies chills, Denies headache(s) and Denies weight loss ENT Denies headache(s) Card Denies chest pain, Denies syncope, Denies irregular heart rhythm and Denies dyspnea Resp Denies chest congestion, Denies cough and Denies dyspnea GI Denies abdominal pain, Denies change in stool character, Denies nausea and Denies vomiting Musc Denies deformity and Denies joint swelling Neuro Denies syncope and Denies headache(s) Physical exam (Primary Care) Vital Signs: Last Vital Signs Pulse 59 10/02/23 10:20 BP 140/80 H 10/02/23 10:20 Pulse Ox 99 10/02/23 10:20 Oxygen Delivery Method Room Air 10/02/23 10:20 BMI result Body Mass Index 33.1 Tobacco/Smoking Status: Tobacco use Status Tobacco use date assessed 08/28/23 10/02/23 10:24 Patient Tobacco Use Status Former Tobacco user 10/02/23 10:24 Tobacco use type Cigarette 10/02/23 10:24 e-Cigarette/Vaping Use Never Used 10/02/23 10:24 Thrive Assessment: Date of Thrive Assessment Date Thrive assessed 08/28/23 10/02/23 10:24 Const General: cooperative, comfortable, no acute distress and alert Neck Neck: Yes no lymphadenopathy Thyroid: Thyroid normal Resp Effort & Inspection: normal respiratory effort Auscultation: clear to auscultation bilaterally Percussion: percussion normal Cardio Jugular venous distension: no JVD Palpation: normal PMI Rate: regular rate Rhythm: regular rhythm Heart sounds: S1 normal heart sound present and S2 normal heart sound present GI Inspection: Yes normal to inspection Palpation (GI): No hepatosplenomegaly present Skin General skin exam: no rashes or lesions noted Extrem General: Yes no clubbing, cyanosis or edema Assessment and Plan Assessment & Plan (1) Hypertension: Code(s): I10 - Essential (primary) hypertension Plan: stable; same rx Coding Level of Care Code Est Pt Level 3 (88601) Diagnoses Hypertension I10
== END 2023-10-02 10:50 | disposition home or self-care (01) ==
PROVIDERS: PCP Internal Medicine; Visit Provider Internal Medicine
DX: I10 Essential (primary) hypertension (principal)
CPT/HCPCS: 99213

== ENCOUNTER 2024-04-22 09:31 | Outpatient (AMB) | payer MEDICARE, MEDICAID, SELFPAY ==
[2024-04-22 09:38] VITALS: BP 142/86; PULSE 70; O2SAT 95; BMI 32.5
--- NOTE | 2024-04-22 09:38 | A.OFFVIS_ITS ---
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 Required: No Accompanied by: Self / Same As Patient Allergies TERE inhibitors Allergy (Unknown, Uncoded 04/22/24 09:38) Cough Medication List - Last Reconciled 04/23/24 by Robert Diallo MD hydrochlorothiazide 25 mg PO DAILY ibuprofen 800 mg PO TID prednisone 1 mg PO DAILY HPI AWV HPI Details HTN on Rx PFSH Medical History Obesity Neuropathy PTSD (post-traumatic stress disorder) Surgical History H/O colonoscopy History of surgery History of cystoscopy History of appendectomy Family History Father Myocardial infarction Mother Hypertension Brother Diabetes Son Neuroblastoma Social History Housing: Apartment Alcohol intake: never Patient Tobacco Use Status: Former Tobacco user Tobacco use type: Cigarette e-Cigarette/Vaping Use: Never Used Second Hand Smoke Exposure: No service: Yes Current occupational status: disabled Cognitive needs: No Hearing needs: No Vision needs: No Questionnaire Medicare Wellness Checkup What gender do you identify with?: male During the past 4 weeks, how much have you been bothered by emotional problems such as feeling anxious, depressed, irritable, sad or downhearted, and blue?: extremely During the past 4 weeks, has your physical & emotional health limited your social activities with family, friends, neighbors, or groups?: extremely During the past 4 weeks, how much bodily pain have you generally had?: very mild pain During the past 4 weeks, was someone available to help you if you needed & wanted help?: no, not at all During the past 4 weeks, what was the hardest physical activity you could do for at least 2 minutes?: very heavy Can you get to places out of walking distance without help? (For eg., can you travel alone on buses, taxis or drive your car?): Yes Can you go shopping for groceries or clothes without someone's help?: Yes Can you prepare your own meals?: Yes Can you do your housework without help?: Yes Because of any health problems, do you need the help of another person with your personal care needs such as eating, bathing, dressing or getting around the house?: No Can you handle your own money without help?: Yes During the past 4 weeks, how would you rate your health in general?: very good During the past 4 weeks how have things been going for you?: pretty bad Are you having difficulties driving your car?: no Do you always fasten your seat belt when you are in a car?: yes, usually During past 4 weeks, have you been bothered by the following: never: Falling or dizzy when standing up, Sexual problems?, Teeth or denture problems? and Problems using the telephone?, seldom: Tiredness or fatigue? and sometimes: Trouble eating well? Have you fallen 2 or more times in the past year?: Yes Are you afraid of falling?: No Are you a smoker?: no During the past 4 weeks, how many drinks of wine, beer, or other alcoholic beverages did you have?: no alcohol at all Do you exercise for about 20 minutes 3 or more times a week?: yes, most of the time Have you been given information to help with the following?: no: Hazards in your house that might hurt you? and no: Keeping track of your medications? How often do you have trouble taking medicines the way you have been told to take them?: I always take medicine as prescribed How confident are you that you can control & manage most of your health problems?: very confident What is your race?: White Mini Mental State Exam (MMSE) Orientation What is the (year) (season) (date) (day) (month)?: year, season, date, day and month Where are we (state) (county) (town or city) (hospital) (floor)?: state, county, town or city, hospital/clinic and floor Registration Name of 3 unrelated objects clearly and slowly, then ask patient to repeat all 3 of them. (1st repeat determines score. Make sure they can repeat all three): object 1 and object 2 Attention & Calculation (CHOOSE ONE) Ask pt to begin with 100 & count backward by 7. Stop after 5 repeats. If pt cannot ask them to spell the word WORLD backward.: 93 Spell WORLD backwards (DLROW): 2 letters Recall Ask patient to repeat the 3 items from question #3.: object 1 Score Score: 16 Activity of Daily Living Bathing - sponge bath, tub bath or shower: receives no assistance (gets in/out by self, if usual bathing means Dressing - getting clothes from closets & drawers, including inner/outer garments & fasteners.: gets clothes & gets completely dressed without help Toileting - going to the 'toilet room' for urine/bowel elimination & cleaning self/arranging clothes: goes to toilet room, cleans self, arranges clothes without help Transfer: moves in & out of bed and chair without help (may use support object) Continence: controls urination/bowel movements completely by self Feeding: feeds self without help Total Score: 0 Information obtained from: patient Using telephone: independent Traveling: independent Shopping: independent Preparing meals: independent Housework: independent Taking medicine: independent Managing money: independent PHQ-9 Over the last 2 weeks, how often have you been bothered by any of the following problems? 1. Little interest or pleasure in doing things: nearly every day 2. Feeling down, depressed, or hopeless: more than half the days 3. Trouble falling or staying asleep, or sleeping too much: more than half the days 4. Feeling tired or having little energy: not at all 5. Poor appetite or overeating: nearly every day 6. Feeling bad about yourself - or that you are a failure or have let yourself or your family down: nearly every day 7. Trouble concentrating on things, such as reading the newspaper or watching television: nearly every day 8. Moving or speaking so slowly that other people could have noticed. Or the opposite - being so fidgety or restless that you have been moving around a lot more than usual: not at all 9. Thoughts that you would be better off or of hurting yourself in some way: not at all Total score: 16 Depression Screening Interpretation: Positive Depression Screening Follow-up: Existing condition Depression Screening Done: Yes 69305 - PHQ-9 Billing: Yes Source: Developed by Santosh Garciaet B.W. Asad, Wesley Duron and colleagues, with an educational linda from [facility]. Review of Systems Const Denies chills, Denies fatigue, Denies headache(s) and Denies weight loss Eyes Denies change in vision, Denies diplopia and Denies eye pain ENT Reports Normal hearing present, Denies vertigo, Denies dizziness, Denies headac he(s) and Denies nasal discharge Card Denies chest pain, Denies rapid heart rate and Denies dyspnea on exertion Resp Denies chest congestion, Denies cough, Denies pain with cough and Denies dyspnea on exertion GI Denies abdominal pain, Denies hematochezia and Denies change in bowel habits Musc Denies myalgias, Denies arthralgias and Denies joint swelling Skin/Breast Denies lesions and Denies unusual bruising Neuro Reports Normal hearing present, Denies vertigo, Denies dizziness, Denies headache(s) and Denies focal weakness Endo Denies fatigue Physical Exam Vital Signs: Last Vital Signs Pulse 70 04/22/24 09:38 BP 142/86 H 04/22/24 09:38 Pulse Ox 95 04/22/24 09:38 Oxygen Delivery Method Room Air 04/22/24 09:38 BMI result Body Mass Index 32.5 Neuro Cranial nerves: Yes Normal hearing present Assessment & Plan Assessment & Plan (1) Encounter for annual wellness visit (AWV) in Medicare patient: Code(s): Z00.00 - Encounter for general adult medical examination without abnormal findings Plan: rhomberg and whisper tests normal; all forms given to patient (2) Hypertension: Code(s): I10 - Essential (primary) hypertension Plan: stable; same rx Orders: Orders Complete Blood Count Auto Diff 04/22/24 Z13.0 - Encounter for screening for diseases of the blood and blood-forming organs and certain disorders involving the immune mechanism Comprehensive [place]. Panel Fast 04/22/24 Z13.9 - Encounter for screening, unspecified Lipid Panel 04/22/24 Z13.220 - Encounter for screening for lipoid disorders Quality Reporting (2019) Depression/Bipolar (159/160/161/177) PHQ-9: Total score: 16 Coding Level of Care Code Medicare Subsequent (G0439) Diagnoses Encounter for annual wellness visit (AWV) in Medicare patient Z00.00 Hypertension I10 CPT Codes Advance Care Planning - Advance Care Planning discussion: On file, no changes ([id number]) Advance Care Planning Advance Care Planning discussion: On file, no changes Forms completed: Health Care Proxy
== END 2024-04-22 10:11 | disposition home or self-care (01) ==
PROVIDERS: PCP Internal Medicine; Visit Provider Internal Medicine
DX: Z00.00 Encounter for general adult medical examination without abnormal findings (principal); I10 Essential (primary) hypertension

== ENCOUNTER → 2024-04-22 09:31 | Outpatient (BNVA) | payer MEDICARE, MEDICAID, SELFPAY | PROVIDERS: PCP Internal Medicine; Visit Provider Internal Medicine ==

== ENCOUNTER 2024-05-22 07:54 | Outpatient (REF) | payer MEDICARE, MEDICAID, SELFPAY ==
[2024-05-22 08:07] LABS: MANUAL DIFF FLAG NO
[2024-05-22 08:21] LABS: Basophils Absolute Auto 0.1 X10*3/uL (0.0-0.2); Eosinophils Absolute Auto 0.2 X10*3/uL (0.0-0.4); Eosinophils Percent Auto 4.2 % (0-4); Hematocrit 41.5 % (42.0-52.0); Hemoglobin 14.2 g/dl (14.0-18.0); Imm Gran Abs Auto 0.01 X10*3/uL (0.00-0.03); Imm Gran Pct Auto 0.2 % (0.0-0.4); Lymphocytes Absolute Auto 1.7 X10*3/uL (1.2-4.9); Lymphocytes Percent Auto 32.6 % (20-40); Mean Corpuscular HGB Conc 34.2 g/dl (31.0-36.0); Mean Corpuscular Hemoglobin 29.8 pg (27.0-33.0); Mean Platelet Volume 9.7 fL (9.4-12.4); Monocytes Absolute Auto 0.4 X10*3/uL (0.1-1.2); Monocytes Percent Auto 8.1 % (2-11); Neutrophils Absolute Auto 2.8 x10*3/uL (2.0-8.3); Neutrophils Percent Auto 53.9 % (45-73); Platelet Count 234 X10*3/uL (160-400); Red Blood Count 4.77 X10*6/uL (4.60-5.80); Red Cell Distribution Width 11.8 % (11.0-16.0); White Blood Count 5.2 X10*3/uL (4.8-10.8)
[2024-05-22 08:48] LABS: Alanine Aminotransferase 31 U/L (0-40); Albumin Level 4.3 g/dL (3.5-5.0); Alkaline Phosphatase 78 U/L (39-117); Anion Gap 12 (12-20); Aspartate Amino Transferase 40 U/L (5-37); Bilirubin Total 0.8 mg/dL (0.0-1.0); Blood Urea Nitrogen 15 mg/dL (9-16); Calcium 10.3 mg/dL (8.4-10.2); Carbon Dioxide 29 mmol/L (22-29); Chloride 101 mmol/L (96-108); Cholesterol 182 mg/dL (<200); Estimated Glomerular Filt Rate > 60; Glucose Fasting 95 mg/dL (60-99); HDL Cholesterol 57 mg/dL (>40); LDL Cholesterol Calculated 115 mg/dL (<100); Potassium 3.9 mmol/L (3.3-5.1); Sodium 138 mmol/L (135-145); Total Protein 7.5 g/dL (6.5-8.0); Triglycerides 51 mg/dL (<150)
== END 2024-05-22 07:55 | disposition home or self-care (01) ==
LOC: HO.LAB 07:54
PROVIDERS: PCP Internal Medicine; Visit Provider Internal Medicine
DX: Z13.0 Encounter for screening for diseases of the blood and blood-forming organs and certain disorders involving the immune mechanism (principal); Z13.9 Encounter for screening, unspecified; Z13.220 Encounter for screening for lipoid disorders
CPT/HCPCS: 36415; 80053; 80061; 85025

== ENCOUNTER 2024-07-23 10:18 | Outpatient (AMB) | payer MEDICARE, MEDICAID, SELFPAY ==
--- NOTE | 2024-07-23 10:30 | A.OFFPC_ITS ---
Vital Signs 07/23/24 10:31 Height 5 ft 9 in Weight 221 lb BMI 32.6 BP 130/70 Blood Pressure Location Lt brachial Position Sitting Pulse 64 Pulse Source Pulse Oximeter Temp 97.3 F Temp Source Skin Pulse Oximetry (%) 98 Oxygen Delivery Method Room Air Intake Visit Reasons: 3mth f/u Intake Note: Patient is here to follow up on HTN. Service Center Coordinator Required: No Exercise Planner: Not Required per policy Accompanied by: Self / Same As Patient Allergies TERE inhibitors Allergy (Unknown, Uncoded 07/23/24 10:31) Cough Medication List - Last Reconciled 07/23/24 by Robert Diallo MD hydrochlorothiazide 25 mg PO DAILY ibuprofen 800 mg PO TID prednisone 1 mg PO DAILY Tobacco use date assessed: 07/23/24 Dental Screening Dental Screen Date: 07/23/24 Did you have a dental visit in the last 12 months?: Yes Did you have a dental problem in the last 6 months where you did not have access to dental care?: No Was dental information given to patient?: Patient has dentist HPI 3mth f/u HPI Details hypertension on rx; doing well and compliant [facility] Medical History Obesity Neuropathy PTSD (post-traumatic stress disorder) Surgical History H/O colonoscopy History of surgery History of cystoscopy History of appendectomy Family History Father Myocardial infarction Mother Hypertension Brother Diabetes Son Neuroblastoma Social History Housing: Apartment Alcohol intake: never Patient Tobacco Use Status: Former Tobacco user Tobacco use type: Cigarette e-Cigarette/Vaping Use: Never Used Second Hand Smoke Exposure: Yes service: Yes Current occupational status: disabled Cognitive needs: No Hearing needs: No Vision needs: Yes (Reading glasses) Questionnaire PHQ-9 Over the last 2 weeks, how often have you been bothered by any of the following problems? 1. Little interest or pleasure in doing things: not at all 2. Feeling down, depressed, or hopeless: nearly every day 3. Trouble falling or staying asleep, or sleeping too much: nearly every day 4. Feeling tired or having little energy: not at all 5. Poor appetite or overeating: nearly every day 6. Feeling bad about yourself - or that you are a failure or have let yourself or your family down: not at all 7. Trouble concentrating on things, such as reading the newspaper or watching television: nearly every day 8. Moving or speaking so slowly that other people could have noticed. Or the opposite - being so fidgety or restless that you have been moving around a lot more than usual: not at all 9. Thoughts that you would be better off or of hurting yourself in some way: not at all Total score: 12 Depression Screening Interpretation: Positive Depression Screening Done: Yes Source: Developed by Drs. Live Hernandez, Indigo Kamara, Wesley Duron and colleagues, with an educational linda from [employer]. Thrive Questionnaire Date Thrive assessed: 07/23/24 I am a: Patient What is your living situation today?: I have a steady place to live Within the past 12 months, did the food you bought not last and you didn't have the money to get more?: Never true Within the past 12 months, did you worry whether your food would run out before you got money to buy more?: Never true Do you have trouble paying for medicines?: No Do you have trouble getting transportation to medical appointments?: No Do you have trouble paying your heating and electricity bill?: No Do you have trouble taking care of your child, family member or friend?: No Do you have trouble with day-to-day activities such as bathing, preparing meals, shopping, managing finances, etc.?: No Are you currently unemployed and looking for a job?: No Are you interested in more education?: No Please select the resources that you would like help with: None Currently or been in a relationship where the following occur: No concerns reported THRIVE Score: 0 AUDIT C Alcohol Use Questionnaire (AUDIT-C) 1. How often do you have a drink containing alcohol?: Never Total Score: 0 DUTCH-7 AMB Questionnaire DUTCH-7 Date DUTCH - 7 assessed: 07/23/24 Feeling nervous, anxious, or on edge: 3 = Nearly every day Not being able to stop or control worryin = Nearly every day Worrying too much about different things: 3 = Nearly every day Trouble relaxin = Nearly every day Being so restless that it is hard to sit still: 1 = Several days Becoming easily annoyed or irritable: 2 = More than half the days Feeling afraid as if something awful might happen: 3 = Nearly every day Total DUTCH-7 score (0-4 normal; 5-9 mild; 10-14 moderate; 15-21 severe): 18 Source: Developed by Drs. Live Hernandez, Indigo Kamara, Wesley Duron and colleagues, with an educational linda from [employer]. Review of Systems Const Denies chills, Denies headache(s) and Denies weight loss ENT Denies headache(s) Card Denies chest pain, Denies syncope, Denies irregular heart rhythm and Denies dyspnea Resp Denies chest congestion, Denies cough and Denies dyspnea GI Denies abdominal pain, Denies change in stool character, Denies nausea and Denies vomiting Musc Denies deformity and Denies joint swelling Neuro Denies syncope and Denies headache(s) Physical exam (Primary Care) Vital Signs: Last Vital Signs Temp 97.3 F 07/23/24 10:31 Pulse 64 07/23/24 10:31 BP 130/70 07/23/24 10:31 Pulse Ox 98 07/23/24 10:31 Oxygen Delivery Method Room Air 07/23/24 10:31 BMI result Body Mass Index 32.6 Tobacco/Smoking Status: Tobacco use Status Tobacco use date assessed 07/23/24 07/23/24 10:37 Patient Tobacco Use Status Former Tobacco user 07/23/24 10:37 Tobacco use type Cigarette 07/23/24 10:37 e-Cigarette/Vaping Use Never Used 07/23/24 10:37 PHQ-9: PHQ-9 Score PHQ-9: Total score 12 07/23/24 10:37 Depression Screening Interpretation: Positive Thrive Assessment: Date of Thrive Assessment Date Thrive assessed 07/23/24 07/23/24 10:37 Currently or been in a relationship where the following occur: No concerns reported Const General: cooperative, comfortable, no acute distress and alert Neck Neck: Yes no lymphadenopathy Thyroid: Thyroid normal Resp Effort & Inspection: normal respiratory effort Auscultation: clear to auscultation bilaterally Percussion: percussion normal Cardio Jugular venous distension: no JVD Palpation: normal PMI Rate: regular rate Rhythm: regular rhythm Heart sounds: S1 normal heart sound present and S2 normal heart sound present GI Inspection: Yes normal to inspection Palpation (GI): No hepatosplenomegaly present Skin General skin exam: no rashes or lesions noted Extrem General: Yes no clubbing, cyanosis or edema Coding Level of Care Code Est Pt Level 3 (86667) Diagnoses Hypertension I10 Assessment & Plan Assessment & Plan (1) Hypertension: Code(s): I10 - Essential (primary) hypertension Category: Medical Plan: stable; same rx
[2024-07-23 10:31] VITALS: BP 130/70; PULSE 64; TEMP 36.3; O2SAT 98; BMI 32.6
== END 2024-07-23 10:46 | disposition home or self-care (01) ==
PROVIDERS: PCP Internal Medicine; Visit Provider Internal Medicine
DX: I10 Essential (primary) hypertension (principal)

== ENCOUNTER → 2024-07-23 10:18 | Outpatient (BNVA) | payer MEDICARE, MEDICAID, SELFPAY | PROVIDERS: PCP Internal Medicine; Visit Provider Internal Medicine | DX: I10 Essential (primary) hypertension (principal) | CPT/HCPCS: 99212 ==

== ENCOUNTER 2024-11-11 09:51 | Outpatient (AMB) | payer MEDICARE, MEDICAID, SELFPAY ==
--- NOTE | 2024-11-11 10:01 | A.OFFPC_ITS ---
Vital Signs 11/11/24 10:02 Height 5 ft 9 in Weight 217 lb 6.4 oz BMI 32.1 BP 132/80 Blood Pressure Location Lt brachial Position Sitting Respiration 16 Pulse 67 Pulse Source Pulse Oximeter Temp 98.9 F Temp Source Oral Pulse Oximetry (%) 98 Oxygen Delivery Method Room Air Intake Visit Reasons: GM - Dr. Diallo to [employer] Required: No Accompanied by: Self / Same As Patient Allergies TERE inhibitors Allergy (Unknown, Uncoded 11/11/24 10:46) Cough Medication List - Last Reconciled 11/11/24 by MOSES Steele hydrochlorothiazide 25 mg PO DAILY ibuprofen 800 mg PO TID prednisone 1 mg PO DAILY Tobacco use date assessed: 11/11/24 Dental Screening Dental Screen Date: 11/11/24 Did you have a dental visit in the last 12 months?: Yes Did you have a dental problem in the last 6 months where you did not have access to dental care?: No Was dental information given to patient?: Patient has dentist HPI GM - Dr. Diallo to HPI Details The patient is a 64-year-old male presenting for transition of care from Dr. Diallo who retired. Follow-up evaluation for chronic health conditions. He has a documented history of essential hypertension and diabetic neuropathy. He experiences severe neuropathy-induced sensory loss in his lower extremities, affecting mobility. Despite this, he remains physically active, although he frequently falls. The patient's medical history includes a diagnosis of bladder cancer, with successful past treatments and recent surveillance through cystoscopy revealing no recurrence. He also reports symptoms of benign prostatic hyperplasia such as nocturia and initiation difficulty, but recent assessments by urology indicate no immediate interventions are required. Urinating causes him some discomfort, slow streams and dribbling after peeing, followed by urology, encouraged him to continue to monitor for now Reports anxiety and depression stemming from increased stress From passing of son and substance abuse by daughter Coping with exercise and staying active, not interest in seeing pyschiatry/ therapist at this time [facility] Medical History Obesity Neuropathy PTSD (post-traumatic stress disorder) Surgical History H/O colonoscopy History of surgery History of cystoscopy History of appendectomy Family History Father Myocardial infarction Mother Hypertension Brother Diabetes Son Neuroblastoma Social History Housing: Apartment Alcohol intake: never Patient Tobacco Use Status: Former Tobacco user Tobacco use type: Cigarette e-Cigarette/Vaping Use: Never Used Second Hand Smoke Exposure: Yes service: Yes Current occupational status: disabled Cognitive needs: No Hearing needs: No Vision needs: Yes (Reading glasses) Questionnaire PHQ-9 Over the last 2 weeks, how often have you been bothered by any of the following problems? 1. Little interest or pleasure in doing things: more than half the days 2. Feeling down, depressed, or hopeless: nearly every day 3. Trouble falling or staying asleep, or sleeping too much: nearly every day 4. Feeling tired or having little energy: nearly every day 5. Poor appetite or overeating: nearly every day 6. Feeling bad about yourself - or that you are a failure or have let yourself or your family down: not at all 7. Trouble concentrating on things, such as reading the newspaper or watching television: nearly every day 8. Moving or speaking so slowly that other people could have noticed. Or the opposite - being so fidgety or restless that you have been moving around a lot more than usual: not at all 9. Thoughts that you would be better off or of hurting yourself in some way: not at all Total score: 17 Depression Screening Interpretation: Positive Depression Screening Done: Yes Source: Developed by Drs. Live Hernandez, Indigo Kamara, Wesley Duron and colleagues, with an educational linda from [employer]. Thrive Questionnaire Date Thrive assessed: 11/11/24 I am a: Patient What is your living situation today?: I have a steady place to live Within the past 12 months, did the food you bought not last and you didn't have the money to get more?: Never true Within the past 12 months, did you worry whether your food would run out before you got money to buy more?: Never true Do you have trouble paying for medicines?: No Do you have trouble getting transportation to medical appointments?: No Do you have trouble paying your heating and electricity bill?: No Do you have trouble taking care of your child, family member or friend?: No Do you have trouble with day-to-day activities such as bathing, preparing meals, shopping, managing finances, etc.?: No Are you currently unemployed and looking for a job?: No Are you interested in more education?: No Please select the resources that you would like help with: None Currently or been in a relationship where the following occur: No concerns reported THRIVE Score: 0 AUDIT C Alcohol Use Questionnaire (AUDIT-C) 1. How often do you have a drink containing alcohol?: Monthly or less 2. How many drinks containing alcohol do you have on a typical day when you are drinking?: 1 or 2 3. How often do you have six or more drinks on one occasion?: Never Total Score: 1 Score Reviewed/Action Taken: No DUTCH-7 AMB Questionnaire DUTCH-7 Date DUTCH - 7 assessed: 07/23/24 Feeling nervous, anxious, or on edge: 3 = Nearly every day Not being able to stop or control worryin = More than half the days Worrying too much about different things: 3 = Nearly every day Trouble relaxin = Nearly every day Being so restless that it is hard to sit still: 3 = Nearly every day Becoming easily annoyed or irritable: 3 = Nearly every day Feeling afraid as if something awful might happen: 3 = Nearly every day Total DUTCH-7 score (0-4 normal; 5-9 mild; 10-14 moderate; 15-21 severe): 20 Source: Developed by Drs. Live Hernandez, Indigo Kamara, Wesley Duron and colleagues, with an educational linda from [employer]. DUTCH-7 Assessment Billing DUTCH-7 Assessment Tool: DUTCH-7 Assessment 99780 Review of Systems Const Denies headache(s) Eyes Denies loss of vision ENT Denies vertigo, Denies dizziness, Denies headache(s) and Denies sore throat Card Denies chest pain, Denies leg edema and Denies lightheadedness Resp Denies cough, Denies hemoptysis and Denies wheezing GI Denies abdominal pain, Denies melena, Denies constipation, Denies diarrhea and Denies vomiting Denies dysuria, Denies urinary frequency, Reports urinary hesitancy, Denies urinary urgency and Reports other (mild discomfort with urination) Musc Denies arthralgias, Denies joint swelling, Reports numbness (from knees down bilaterally) and Denies tingling Neuro Denies Abnormal speech present, Denies behavioral changes, Denies vertigo, Denies dizziness, Denies headache(s), Denies loss of vision, Denies memory loss, Reports numbness (from knees down bilaterally) and Denies tingling Psych Reports anxiety, Denies behavioral changes, Reports depression, Denies memory loss and Denies panic attacks Jesse/Lymph Denies easy bleeding and Denies easy bruising Aller/Immun Denies wheezing Physical exam (Primary Care) Vital Signs: Last Vital Signs Temp 98.9 F 11/11/24 10:02 Pulse 67 11/11/24 10:02 Resp 16 11/11/24 10:02 BP 132/80 11/11/24 10:02 Pulse Ox 98 11/11/24 10:02 Oxygen Delivery Method Room Air 11/11/24 10:02 BMI result Body Mass Index 32.1 Tobacco/Smoking Status: Tobacco use Status Tobacco use date assessed 11/11/24 11/11/24 10:09 Patient Tobacco Use Status Former Tobacco user 11/11/24 10:09 Tobacco use type Cigarette 11/11/24 10:09 e-Cigarette/Vaping Use Never Used 11/11/24 10:09 PHQ-9: PHQ-9 Score PHQ-9: Total score 17 11/13/24 05:20 Depression Screening Interpretation: Positive Thrive Assessment: Date of Thrive Assessment Date Thrive assessed 11/11/24 11/11/24 10:09 Currently or been in a relationship where the following occur: No concerns reported Const General: healthy appearing, no acute distress, alert and awake Nutritional Appearance: well nourished Orientation/consciousness: oriented to person, oriented to place and oriented to time HENMT Ears: TM's normal bilaterally General nose exam: Normal nasal mucous membranes and turbinates present Eyes Conjunctivae: conjunctivae normal Sclerae: sclerae normal Pupils: Equal, round and reactive pupils present Neck Neck: Yes no lymphadenopathy and Yes no JVD Thyroid: Thyroid normal Carotids: no bruits Resp Effort & Inspection: normal respiratory effort and not tachypneic Auscultation: no crackles, no rales, no rhonchi and no wheezes Cardio Rate: regular rate Rhythm: regular rhythm Heart sounds: no murmurs and normal S1 and S2 GI Palpation (GI): Soft to palpation, nontender, no hepatomegaly and no splenomegaly Auscultation: normal bowel sounds General: Yes no CVA tenderness Back/Spine/Pelvis Back: no CVA tenderness Skin General skin exam: no rashes or lesions noted and dry skin Neuro General: oriented to person, oriented to place and oriented to time Cranial nerves: Yes Equal, round and reactive pupils present Speech: No Abnormal speech present Gait exam (Neuro): Normal gait present Motor exam (neuro): no tremor noted Extrem Right upper extremity: full ROM Left upper extremity: full ROM Right lower extremity: full ROM and lower leg; no edema Left lower extremity: full ROM; no edema Psych Mental Status: mental status grossly normal Speech and movement: Normal speech and movement present Affect: normal affect Attitude: cooperative Thought process: Normal thought process present Coding Level of Care Code Est Pt Level 4 (92107) Diagnoses Hypertension, unspecified type I10 Hypertension type: unspecified Anxiety F41.9 Reactive depression F32.9 Depression Type: reactive depression Neuropathy G62.9 Class 1 obesity with body mass index (BMI) of 32.0 to 32.9 in adult, unspecified obesity type, unspecified whether serious comorbidity present E66.811; Z68.32 Obesity type: unspecified obesity type Obesity classification: adult class 1 (BMI 30 - 34.9) Body mass index: BMI 32.0-32.9 Serious obesity comorbidity presence: unspecified whether serious comorbidity present Dysuria R30.0 Additional Codes DUTCH-7 Assessment Billing - DUTCH-7 Assessment Tool: DUTCH-7 Assessment 50035 ([id number]) Time Spent (min) 38 Assessment & Plan Assessment & Plan (1) Hypertension: Code(s): I10 - Essential (primary) hypertension Category: Medical Qualifiers: Hypertension type: unspecified Qualified Code(s): I10 - Essential (primary) hypertension Plan: Blood pressure 132/80 in office. Reinforced dash diet Continue hydrochlorothiazide 25 mg daily (2) Anxiety: Code(s): F41.9 - Anxiety disorder, unspecified Category: Medical Plan: Encouraged CBT-not interested at this time Coping with exercise and staying physically active Denies SI/HI (3) Depression: Code(s): F32.A - Depression, unspecified Category: Medical Qualifiers: Depression Type: reactive depression Qualified Code(s): F32.9 - Major depressive disorder, single episode, unspecified Plan: Same as above (4) Neuropathy: Code(s): G62.9 - Polyneuropathy, unspecified Category: Medical Plan: Encouraged compression stockings Not a fan of medication and would like to stay the natural route continue physical activity as tolerated to improve circulation (5) Obesity: Code(s): E66.9 - Obesity, unspecified Category: Medical Qualifiers: Obesity type: unspecified obesity type Obesity classification: adult class 1 (BMI 30 - 34.9) Body mass index: BMI 32.0-32.9 Serious obesity comorbidity presence: unspecified whether serious comorbidity present Qualified Code(s): E66.811 - Obesity, class 1; Z68.32 - Body mass index [BMI] 32.0-32.9, adult Plan: Encouraged to exercise for at least 30 minutes a day/5 days a week Healthy eating discussed. Encouraged to eat fruits/vegetables, protein- fish/baked chicken, and to avoid salty/fried foods, sweets, caffeine and carbohydrates. Encouraged to increase water intake 6-8 glasses a day (6) Dysuria: Code(s): R30.0 - Dysuria Category: Medical Plan: hx of bladder ca, followed by [facility] urology, Dr. Yemi Heck MD. Symptoms are mild in nature, suspected to be early BPH by urologist. Recommended to continue monitor for now. Orders: Orders Comprehensive [place]. Panel Fast 11/11/24 E66.9 - Obesity, unspecified, I10 - Essential (primary) hypertension, Z00.00 - Encounter for general adult medical examination without abnormal findings Vitamin D 25-OH Total 11/11/24 E66.9 - Obesity, unspecified, I10 - Essential (primary) hypertension, Z00.00 - Encounter for general adult medical examination without abnormal findings UA CC w/rflx Micro + Cult 11/11/24 E66.9 - Obesity, unspecified, I10 - Essential (primary) hypertension, Z00.00 - Encounter for general adult medical examination without abnormal findings Complete Blood Count Auto Diff 11/11/24 E66.9 - Obesity, unspecified, I10 - Essential (primary) hypertension, Z00.00 - Encounter for general adult medical examination without abnormal findings Glucose Fasting 11/11/24 E66.9 - Obesity, unspecified, I10 - Essential (primary) hypertension, Z00.00 - Encounter for general adult medical examination without abnormal findings TSH reflex Free T4 11/11/24 E66.9 - Obesity, unspecified, I10 - Essential (primary) hypertension, Z00.00 - Encounter for general adult medical examination without abnormal findings Lipid Panel 11/11/24 E66.9 - Obesity, unspecified, I10 - Essential (primary) hypertension, Z00.00 - Encounter for general adult medical examination without abnormal findings
[2024-11-11 10:02] VITALS: BP 132/80; PULSE 67; RESP 16; TEMP 37.2; O2SAT 98; BMI 32.1
--- OUTSIDE RECORDS SUMMARY | 2024-11-11 10:41 | XMS_ITS | Encounter Summary ---
Author Organization [facility] Address [address] [place] [address] Care Team Providers Care Rn Lvn Name Role Phone Physician, Pcp Unknown Primary Care Provider Haley vailable Encounter Details Date Type Department Care Team (Late st Contact Info) Description 11/07/2024 Lab Requisition [facility] - Main Lab [address] [facility] [place] [address] Yemi Heck MD [address] [place] [address] Personal history of malignant neoplasm of bladder Social History Tobacco Use Types Packs/Day Years Used Date Smoking Tobacco: Never Assessed Sex and Gender Information Value Date Recorded Sex Assigned at Not on file Legal Sex Male 3:54 PM EDT Gender Identity Not on file Sexual Orientation Not on file documented as of this encounter Plan of Treatment Pending Results Name Type Priority Associated Diagnoses Date /Time Anatomic pathology outside consult Pathology and Cytology Routine Personal history of malignant neoplasm of bladder 11/04/2024 12:00 AM EDT documented as of this encounter Visit Diagnoses Diagnosis Personal history of malignant neoplasm of bladder documented in this encounter Care Teams Rn Lvn Relationship Specialty Start Date End Date Physician, Pcp Unknown PCP - General 11/07/24 documented as of this encounter
--- OUTSIDE RECORDS SUMMARY | 2024-11-11 10:41 | XMS_ITS | Clinical Summary ---
Author Organization [address] [facility] Address [address] [place] [address] Phone Care Team Providers Care Air Tester Name Role Phone Physician, Pcp Unknown Primary Care Provider Haley vailable Encounters Date Type Department Care Team Description 11/07/2024 Lab Requisition [facility] - Main Lab [address] [employer] [place] [address] Yemi Heck MD Personal history of malignant neoplasm of bladder from Last 3 Months Social History Tobacco Use Types Packs/Day Years Used Date Smoking Tobacco: Never Assessed Sex and Gender Information Value Date Recorded Sex Assigned at Not on file Legal Sex Male 3:54 PM EDT Gender Identity Not on file Sexual Orientation Not on file Plan of Treatment Health Maintenance Due Date Last Done Comments DTaP,Tdap,and Td Vaccines (1 - Tdap) 1980 Pneumococcal Vaccine: 50+ Ye ars (1 of 1 - PCV) 09/05/2011 Zoster Vaccines (1 of 2) 09/05/2011 COVID-19 Vaccine ( - 2023-2 5 season) 2024 Cholesterol Screening (Lipid Panel) 11/07/2024 Colorectal Cancer Screening: Colonoscopy 11/07/2024 Depression Screening 11/07/2024 HIV Screening 11/07/2024 Hepatitis C Screening 11/07/2024 Medicare Annual Wellness Visit 11/07/2024 Social Influencers of Health Screening 11/07/2024 Influenza Vaccine (Season Ended) 2025 RSV Immunization Adult Patie nts (1 - 1-dose 75+ series) 2036 HIB Vaccines Aged Out No longer eligi ble based on patient's age to complete this topic HPV Vaccines Aged Out No longer eligi ble based on patient's age to complete this topic Hepatitis A Vaccines Aged Out No long er eligible based on patient's age to complete this topic Hepatitis B Vaccines Aged Out No long er eligible based on patient's age to complete this topic IPV Vaccines Aged Out No longer eligi ble based on patient's age to complete this topic MMR Vaccines Aged Out No longer eligi ble based on patient's age to complete this topic Meningococcal ACWY Vaccine Aged Out N o longer eligible based on patient's age to complete this topic Meningococcal B Vaccine Aged Out No l onger eligible based on patient's age to complete this topic Pneumococcal Vaccine: Pediat rics (0 to 5 Years) and At-Risk Patients (6 to 64 Years) Aged Out No longer eligible b ased on patient's age to complete this topic RSV Immunization Patients Un den 20 months Aged Out No longer eligible b ased on patient's age to complete this topic Varicella Vaccines Aged Out No longer eligible based on patient's age to complete this topic Insurance MEDICARE MEDICAID - [place] Care Teams Air Tester Relationship Specialty Start Date End Date Physician, Pcp Unknown PCP - General 11/07/24
== END 2024-11-11 11:09 | disposition home or self-care (01) ==
DX: I10 Essential (primary) hypertension (principal); F41.9 Anxiety disorder, unspecified; F32.9 Major depressive disorder, single episode, unspecified; G62.9 Polyneuropathy, unspecified; E66.811 Obesity, class 1; Z68.32 Body mass index [BMI] 32.0-32.9, adult; R30.0 Dysuria

== ENCOUNTER → 2024-11-11 09:51 | Outpatient (BNVA) | payer MEDICARE, MEDICAID, SELFPAY | PROVIDERS: PCP Internal Medicine | DX: I10 Essential (primary) hypertension (principal); F41.9 Anxiety disorder, unspecified; F32.9 Major depressive disorder, single episode, unspecified; G62.9 Polyneuropathy, unspecified; E66.811 Obesity, class 1; Z68.32 Body mass index [BMI] 32.0-32.9, adult; R30.0 Dysuria; Z71.3 Dietary counseling and surveillance | CPT/HCPCS: 96127; 99212 ==

== ENCOUNTER 2025-02-13 06:02 | Outpatient (REF) | payer MEDICARE, MEDICAID, SELFPAY ==
--- OUTSIDE RECORDS SUMMARY | 2025-02-13 06:05 | XMS_ITS | Clinical Summary ---
Author Organization [address] [facility] Address [address] [place] [address] Phone Care Team Providers Care Nursing Project Coordinator Name Role Phone Physician, Pcp Unknown Primary Care Provider Haley vailable Social History Tobacco Use Types Packs/Day Years [...] Vaccines (1 of 2) 09/05/2011 COVID-19 Vaccine (1 - 2023-2 5 season) 2024 Depression Screening 07/02/2024 Cholesterol Screening (Lipid Panel) 11/07/2024 Colorectal Cancer Screening: Colonoscopy 11/07/2024 HIV Screening 11/07/2024 Hepatitis C Screening 11/07/2024 Medicare Annual Wellness Visit 11/07/2024 Social Influencers of Health Screening 11/07/2024 Influenza Vaccine (#1) 2025 RSV Immunization Adult Patie nts (1 [...] Insurance MEDICARE MEDICAID - [place] Care Teams Nursing Project Coordinator Relationship Specialty Start Date End Date Physician, Pcp Unknown PCP - General 11/07/24
[2025-02-13 06:22] LABS: MANUAL DIFF FLAG NO
[2025-02-13 07:41] LABS: Hematocrit 43.0 % (42.0-52.0); Hemoglobin 14.9 g/dl (14.0-18.0); Imm Gran Abs Auto 0.04 X10*3/uL (0.00-0.03); Imm Gran Pct Auto 0.5 % (0.0-0.4); Lymphocytes Absolute Auto 2.0 X10*3/uL (1.2-4.9); Mean Corpuscular HGB Conc 34.7 g/dl (31.0-36.0); Mean Corpuscular Hemoglobin 30.7 pg (27.0-33.0); Mean Corpuscular Volume 88.5 fL (80.0-98.0); NRBC Abs Auto 0.000 X10*3/uL (0.0-0.012); NRBC Pct Auto 0.0 /100WBC (0.0-0.2); Platelet Count 224 X10*3/uL (160-400); Red Blood Count 4.86 X10*6/uL (4.60-5.80); White Blood Count 7.6 X10*3/uL (4.8-10.8)
[2025-02-13 08:17] LABS: Alanine Aminotransferase 29 U/L (0-40); Albumin Level 4.5 g/dL (3.5-5.0); Alkaline Phosphatase 79 U/L (39-117); Anion Gap 14 (12-20); Aspartate Amino Transferase 38 U/L (5-37); Blood Urea Nitrogen 16 mg/dL (9-16); Calcium 9.5 mg/dL (8.4-10.2); Carbon Dioxide 27 mmol/L (22-29); Chloride 101 mmol/L (96-108); Cholesterol 168 mg/dL (<200); Estimated Glomerular Filt Rate > 60; HDL Cholesterol 57 mg/dL (>40); Potassium 3.9 mmol/L (3.3-5.1); Sodium 138 mmol/L (135-145); Total Protein 7.4 g/dL (6.5-8.0); Triglycerides 58 mg/dL (<150)
[2025-02-13 08:49] LABS: Appearance Urine Clear; Glucose Urine UA Negative (Negative); PH 6.0 (5.0-9.0); Specific Gravity - Urine 1.015 (1.005-1.025)
== END 2025-02-13 06:03 | disposition home or self-care (01) ==
LOC: HO.LAB 06:02
DX: Z00.00 Encounter for general adult medical examination without abnormal findings (principal); I10 Essential (primary) hypertension; E66.9 Obesity, unspecified
CPT/HCPCS: 36415; 80053; 80061; 81003; 82306; 84443; 85025

== ENCOUNTER 2025-03-16 09:09 | Outpatient (AMB) | payer MEDICARE, MEDICAID, SELFPAY ==
[2025-03-16 09:22] VITALS: BP 152/98; PULSE 56; RESP 18; TEMP 36.3; O2SAT 97; BMI 32.2
--- NOTE | 2025-03-16 09:22 | MHC.PC.OV ---
Vital Signs 03/16/25 09:22 Height 5 ft 9 in Weight 218 lb BMI 32.2 BP 152/98 H Blood Pressure Location Lt brachial Position Sitting Respiration 18 Pulse 56 Pulse Source Pulse Oximeter Temp 97.3 F Temp Source Temporal Artery Scan Pulse Oximetry (%) 97 Oxygen Delivery Method Room Air Intake Visit Reasons: htn/hld Bushwalking Guide Required: No Accompanied by: Self / Same As Patient Allergies TERE inhibitors Allergy (Unknown, Uncoded 03/16/25 09:35) Cough Medication List - Last Reconciled 03/16/25 by MOSES Steele hydrochlorothiazide 25 mg PO DAILY ibuprofen 800 mg PO TID prednisone 1 mg PO DAILY Tobacco use date assessed: 03/16/25 Dental Screening Dental Screen Date: 03/16/25 Did you have a dental visit in the last 12 months?: Yes Did you have a dental problem in the last 6 months where you did not have access to dental care?: No Was dental information given to patient?: Patient has dentist HPI htn/hld HPI Details The patient is a 64-year-old male presenting with hypertension. He reports that his blood pressure has been consistently high, and he is currently taking hydrochlorothiazide 25 mg for management. The patient mentions a recent blood pressure reading of 119/70 mmHg, which he suspects may have been inaccurate. It is 158/98 today in office. The patient also has a history of elevated liver enzymes, with a recent measurement showing a slight decrease from 40 to 38 U/L. He is advised that this is not a significant concern unless the levels rise substantially. Additionally, the patient has hyperlipidemia, with cholesterol levels being monitored regularly. He is informed that his LDL cholesterol is less than 100 mg/dL, which is considered acceptable. [facility] Medical History Obesity Neuropathy PTSD (post-traumatic stress disorder) Surgical History H/O colonoscopy History of surgery History of cystoscopy History of appendectomy Family History Father Myocardial infarction Mother Hypertension Brother Diabetes Son Neuroblastoma Social History Housing: Apartment Alcohol intake: never Patient Tobacco Use Status: Former Tobacco user Tobacco use type: Cigarette e-Cigarette/Vaping Use: Never Used Second Hand Smoke Exposure: Yes service: Yes Current occupational status: disabled Cognitive needs: No Hearing needs: No Vision needs: Yes (Reading glasses) Questionnaire PHQ-9 Over the last 2 weeks, how often have you been bothered by any of the following problems? 1. Little interest or pleasure in doing things: more than half the days 2. Feeling down, depressed, or hopeless: nearly every day 3. Trouble falling or staying asleep, or sleeping too much: nearly every day 4. Feeling tired or having little energy: nearly every day 5. Poor appetite or overeating: nearly every day 6. Feeling bad about yourself - or that you are a failure or have let yourself or your family down: not at all 7. Trouble concentrating on things, such as reading the newspaper or watching television: nearly every day 8. Moving or speaking so slowly that other people could have noticed. Or the opposite - being so fidgety or restless that you have been moving around a lot more than usual: not at all 9. Thoughts that you would be better off or of hurting yourself in some way: not at all Total score: 17 Depression Screening Interpretation: Positive Depression Screening Done: Yes Source: Developed by Drs. Live Hernandez, Indigo Kamara, Wesley Duron and colleagues, with an educational linda from [employer]. Thrive Questionnaire Date Thrive assessed: 03/16/25 I am a: Patient What is your living situation today?: I have a steady place to live Within the past 12 months, did the food you bought not last and you didn't have the money to get more?: Never true Within the past 12 months, did you worry whether your food would run out before you got money to buy more?: Never true Do you have trouble paying for medicines?: No Do you have trouble getting transportation to medical appointments?: No Do you have trouble paying your heating and electricity bill?: No Do you have trouble taking care of your child, family member or friend?: No Do you have trouble with day-to-day activities such as bathing, preparing meals, shopping, managing finances, etc.?: No Are you currently unemployed and looking for a job?: No Are you interested in more education?: No Please select the resources that you would like help with: None Currently or been in a relationship where the following occur: No concerns reported THRIVE Score: 0 AUDIT C Alcohol Use Questionnaire (AUDIT-C) 1. How often do you have a drink containing alcohol?: Monthly or less 2. How many drinks containing alcohol do you have on a typical day when you are drinking?: 1 or 2 3. How often do you have six or more drinks on one occasion?: Never Total Score: 1 Score Reviewed/Action Taken: No DUTCH-7 AMB Questionnaire DUTCH-7 Date DUTCH - 7 assessed: 03/16/25 Feeling nervous, anxious, or on edge: 3 = Nearly every day Not being able to stop or control worryin = More than half the days Worrying too much about different things: 3 = Nearly every day Trouble relaxin = Nearly every day Being so restless that it is hard to sit still: 3 = Nearly every day Becoming easily annoyed or irritable: 3 = Nearly every day Feeling afraid as if something awful might happen: 3 = Nearly every day Total DUTCH-7 score (0-4 normal; 5-9 mild; 10-14 moderate; 15-21 severe): 20 Source: Developed by Drs. Live Hernandez, Indigo Kamara, Wesley Duron and colleagues, with an educational linda from [employer]. Review of Systems Const Denies body aches, Denies chills, Denies fever(s), Denies headache(s) and Denies poor appetite Eyes Reports no additional complaints ENT Denies dysphagia, Denies dizziness, Denies headache(s) and Denies odynophagia Card Denies chest pain, Denies syncope, Denies edema, Denies irregular heart rhythm, Denies lightheadedness and Denies dyspnea Resp Denies cough and Denies dyspnea GI Denies abdominal pain, Denies constipation, Denies dysphagia, Denies diarrhea, Denies nausea, Denies odynophagia and Denies vomiting Reports no additional complaints Musc Reports no additional complaints and Denies abnormal gait Skin/Breast Reports system reviewed and no additional complaints, except as documented Neuro Denies abnormal gait, Denies dizziness, Denies syncope and Denies headache(s) Psych Reports no additional complaints Physical exam (Primary Care) Vital Signs: Last Vital Signs Temp 97.3 F 03/16/25 09:22 Pulse 56 03/16/25 09:22 Resp 18 03/16/25 09:22 BP 152/98 H 03/16/25 09:22 Pulse Ox 97 03/16/25 09:22 Oxygen Delivery Method Room Air 03/16/25 09:22 BMI result Body Mass Index 32.2 Tobacco/Smoking Status: Tobacco use Status Tobacco use date assessed 03/16/25 03/16/25 09:29 Patient Tobacco Use Status Former Tobacco user 03/16/25 09:29 Tobacco use type Cigarette 03/16/25 09:29 e-Cigarette/Vaping Use Never Used 03/16/25 09:29 PHQ-9: PHQ-9 Score PHQ-9: Total score 17 03/16/25 09:29 Depression Screening Interpretation: Positive Thrive Assessment: Date of Thrive Assessment Date Thrive assessed 03/16/25 03/16/25 09:29 Currently or been in a relationship where the following occur: No concerns reported Const General: cooperative, healthy appearing, comfortable and no acute distress Orientation/consciousness: patient oriented x3 HENMT Head: Yes normocephalic Ears: hearing grossly normal bilaterally General nose exam: Normal external nose present Eyes General: appearance normal, both eyes and all related structures Conjunctivae: conjunctivae normal Neck Neck: Yes full ROM and Yes no lymphadenopathy Resp Effort & Inspection: normal respiratory effort Auscultation: clear to auscultation bilaterally, no crackles, no rales, no rhonchi and no wheezes Cardio Rate: regular rate Rhythm: regular rhythm Skin General skin exam: no rashes or lesions noted Neuro General: patient oriented x3 Gait exam (Neuro): Normal gait present Extrem General: Yes normal to inspection, Yes full ROM and No edema Psych Affect: normal affect Attitude: cooperative Insight: Good insight present (Psych) Judgement: Good judgement present (Psych) Results Reviewed Results Reviewed: Laboratory Tests 02/13/25 02/13/25 06:14 06:21 WBC 7.6 RBC 4.86 Hgb 14.9 Hct 43.0 MCV 88.5 MCH 30.7 MCHC 34.7 RDW 12.1 Plt Count 224 Sodium 138 Potassium 3.9 Chloride 101 Carbon Dioxide 27 Anion Gap 14 BUN 16 Creatinine 0.99 Estimated GFR > 60 Fasting Glucose 77 Calcium 9.5 D Total Bilirubin 1.1 H AST 38 H ALT 29 Alkaline Phosphatase 79 Total Protein 7.4 Albumin 4.5 Triglycerides 58 Cholesterol 168 LDL Cholesterol, Calc 100 H HDL Cholesterol 57 25-OH Vitamin D Total 51.5 TSH 1.11 Urine Color Yellow Urine Appearance Clear Urine pH 6.0 Ur Specific [place] 1.015 Urine Protein Negative Urine Glucose (UA) Negative Urine Ketones 40 Urine Blood Negative Urine Nitrite Negative Ur Leukocyte Esterase Negative Coding Level of Care Code Est Pt Level 3 (87793) Diagnoses Hyperlipidemia, unspecified hyperlipidemia type E78.5 Hyperlipidemia type: unspecified Hypertension, unspecified type I10 Hypertension type: unspecified Class 1 obesity with body mass index (BMI) of 32.0 to 32.9 in adult, unspecified obesity type, unspecified whether serious comorbidity present E66.811; Z68.32 Obesity type: unspecified obesity type Obesity classification: adult class 1 (BMI 30 - 34.9) Serious obesity comorbidity presence: unspecified whether serious comorbidity present Body mass index: BMI 32.0-32.9 Reactive depression F32.9 Depression Type: reactive depression Anxiety F41.9 Neuropathy G62.9 Time Spent (min) 33 Assessment & Plan Assessment & Plan (1) HLD (hyperlipidemia): Code(s): E78.5 - Hyperlipidemia, unspecified Category: Medical Qualifiers: Hyperlipidemia type: unspecified Qualified Code(s): E78.5 - Hyperlipidemia, unspecified Plan: The patient's LDL cholesterol is less than 100 mg/dL, which is acceptable, and regular monitoring will continue. Discussed lifestyle modifications including dietary changes and physical activity (2) Hypertension: Code(s): I10 - Essential (primary) hypertension Category: Medical Qualifiers: Hypertension type: unspecified Qualified Code(s): I10 - Essential (primary) hypertension Plan: Blood pressure 152/98 in office. Reinforced dash diet Continue hydrochlorothiazide 25 mg daily, add amlodipine 5 mg daily Return in 1 month for blood pressure check by nurse (3) Obesity: Code(s): E66.9 - Obesity, unspecified Category: Medical Qualifiers: Obesity type: unspecified obesity type Obesity classification: adult class 1 (BMI 30 - 34.9) Serious obesity comorbidity presence: unspecified whether serious comorbidity present Body mass index: BMI 32.0-32.9 Qualified Code(s): E6.81 - Obesity, class 1; Z68.32 - Body mass index [BMI] 32.0-32.9, adult Plan: Encouraged to exercise for at least 30 minutes a day/5 days a week Healthy eating discussed. Encouraged to eat fruits/vegetables, protein-fish/baked chicken, and to avoid salty/fried foods, sweets, caffeine and carbohydrates. Encouraged to increase water intake 6-8 glasses a day (4) Depression: Code(s): F32.A - Depression, unspecified Category: Medical Qualifiers: Depression Type: reactive depression Qualified Code(s): F32.9 - Major depressive disorder, single episode, unspecified Plan: Encouraged CBT-not interested at this time Coping with exercise and staying physically active Denies SI/HI (5) Anxiety: Code(s): F41.9 - Anxiety disorder, unspecified Category: Medical Plan: Encouraged CBT-not interested at this time Coping with exercise and staying physically active Denies SI/HI (6) Neuropathy: Code(s): G62.9 - Polyneuropathy, unspecified Category: Medical Plan: Encouraged compression stockings Not a fan of medication and would like to stay the natural route continue physical activity as tolerated to improve circulation Orders: Orders Lipid Panel 3 Months E6.81 - Obesity, class 1, E78.5 - Hyperlipidemia, unspecified, F32.9 - Major depressive disorder, single episode, unspecified, F41.9 - Anxiety disorder, unspecified, I10 - Essential (primary) hypertension, Z68.32 - Body mass index [BMI] 32.0-32.9, adult UA CC w/rflx Micro + Cult 3 Months E66.811 - Obesity, class 1, E78.5 - Hyperlipidemia, unspecified, F32.9 - Major depressive disorder, single episode, unspecified, F41.9 - Anxiety disorder, unspecified, I10 - Essential (primary) hypertension, Z68.32 - Body mass index [BMI] 32.0-32.9, adult Microalbumin, Random (w Creat) 3 Months E66.811 - Obesity, class 1, E78.5 - Hyperlipidemia, unspecified, F32.9 - Major depressive disorder, single episode, unspecified, F41.9 - Anxiety disorder, unspecified, I10 - Essential (primary) hypertension, Z68.32 - Body mass index [BMI] 32.0-32.9, adult TSH reflex Free T4 3 Months E66.811 - Obesity, class 1, E78.5 - Hyperlipidemia, unspecified, F32.9 - Major depressive disorder, single episode, unspecified, F41.9 - Anxiety disorder, unspecified, I10 - Essential (primary) hypertension, Z68.32 - Body mass index [BMI] 32.0-32.9, adult Vitamin D 25-OH Total 3 Months E66.811 - Obesity, class 1, E78.5 - Hyperlipidemia, unspecified, F32.9 - Major depressive disorder, single episode, unspecified, F41.9 - Anxiety disorder, unspecified, I10 - Essential (primary) hypertension, Z68.32 - Body mass index [BMI] 32.0-32.9, adult Comprehensive [place]. Panel Fast 3 Months E66.811 - Obesity, class 1, E78.5 - Hyperlipidemia, unspecified, F32.9 - Major depressive disorder, single episode, unspecified, F41.9 - Anxiety disorder, unspecified, I10 - Essential (primary) hypertension, Z68.32 - Body mass index [BMI] 32.0-32.9, adult Medications: New amlodipine 5 mg PO DAILY 30 tabs 3RF
--- OUTSIDE RECORDS SUMMARY | 2025-03-16 10:47 | XMS_ITS | Clinical Summary ---
Author Organization [address] [facility] Address [address] [place] [address] Phone Care Team Providers Care Manager Investigations Name Role Phone Physician, Pcp Unknown Primary [...] 09/05/2011 Zoster Vaccines (1 of 2) 09/05/2011 Depression Screening 07/02/2024 Cholesterol Screening (Lipid Panel) 11/07/2024 Colorectal Cancer Screening: Colonoscopy 11/07/2024 HIV Screening 11/07/2024 Hepatitis C Screening 11/07/2024 Medicare Annual Wellness Visit 11/07/2024 Social Influencers of Health Screening 11/07/2024 COVID-19 Vaccine (1 - 2023-2 5 season) 2025 Influenza Vaccine (#1) 2025 RSV Immunization Adult [...] Insurance MEDICARE MEDICAID - [place] Care Teams Manager Investigations Relationship Specialty Start Date End Date Physician, Pcp Unknown PCP - General 11/07/24
--- OUTSIDE RECORDS SUMMARY | 2025-03-16 10:47 | XMS_ITS | Encounter Summary ---
Author Organization [facility] Address [address] [place] [address] Care Team Providers Care Plastic Die Maker Apprentice Name Role Phone Physician, Pcp Unknown Primary Care Provider Haley vailable Encounter Details Date Type Department Care Team (Late st Contact Info) Description 11/07/2024 Lab Requisition [facility] - Main Lab [address] [place] [address] Yemi Heck MD [address] [place] [address] Personal history of malignant neoplasm of bladder Social History Tobacco Use Types Packs/Day Years Used Date Smoking Tobacco: Never Assessed Sex and Gender Information Value Date Recorded Sex Assigned at Not on file Legal Sex Male 3:54 PM EDT Gender Identity Not on file Sexual Orientation Not on file documented as of this encounter Plan of Treatment Not on file documented as of this encounter Procedures Procedure Name Priority Date/Time Associated Diagnosis Comments AP OUTSIDE CONSULT Routine 11/04/2024 12 :00 AM EDT Personal history of malignant neoplasm of bladder documented in this encounter Results * Anatomic pathology outside consult (11/04/2024 12:00 AM EDT) Final Diagnosis A. Urine, Voided, ([id number]): Negative for high grade urothelial carcinoma. Acute inflammation present. Results of UroVysion fluorescence in situ hybridization (FISH) testing: CEP3: Normal CEP7: Normal CEP17: Normal LSI 9p21: Normal Interpretation: Normal profile Controls stained appropriately. Note: The results are intended as a screening device and should be interpreted in association with other clinical and pathological findings. 11/21/2024 2:[address] [facility] ([facility]) [facility] Clinical Information History of bladder neoplasm (malignant) Z85.51 Urine Cytology/FISH (now) 11/21/2024 2:02 PM EDT [facility] Gross Description A. Urine, Voided, ([id number]): Received one ThinPrep slide for cytology and one ThinPrep slide for UroVysion FISH 11/21/2024 2:02 PM EDT [facility] Disclaimer Unless otherwise specified, all tissue is 10% NB formalin fixed and paraffin embedded. Technical pathology services provided by [facility] at [address], [place] [address] (CLIA #[id number]/Latrice Gamble MD, Sprinkler Installer) 11/21/2024 2:02 PM EDT [facility] Tissue Urine specimen from urethra / Unknown 11/04/2024 11/07/2024 3:59 PM EDT us Yemi Heck MD LAB PATHOLOGY ORDERABLES Fi nal Result [facility] [address] [place] [address], documented in this encounter Visit Diagnoses Diagnosis Personal history of malignant neoplasm of bladder documented in this encounter Care Teams Plastic Die Maker Apprentice Relationship Specialty Start Date End Date Physician, Pcp Unknown PCP - General 11/07/24 documented as of this encounter
== END 2025-03-16 09:59 | disposition home or self-care (01) ==
LOC: HO.HMCH 09:10
DX: E78.5 Hyperlipidemia, unspecified (principal); I10 Essential (primary) hypertension; E66.811 Obesity, class 1; Z68.32 Body mass index [BMI] 32.0-32.9, adult; F32.9 Major depressive disorder, single episode, unspecified; F41.9 Anxiety disorder, unspecified; G62.9 Polyneuropathy, unspecified

== ENCOUNTER → 2025-03-16 09:09 | Outpatient (BNVA) | payer MEDICARE, MEDICAID, SELFPAY | DX: I10 Essential (primary) hypertension (principal); E78.5 Hyperlipidemia, unspecified; E66.811 Obesity, class 1; F32.9 Major depressive disorder, single episode, unspecified; F41.9 Anxiety disorder, unspecified; G62.9 Polyneuropathy, unspecified; Z68.32 Body mass index [BMI] 32.0-32.9, adult | CPT/HCPCS: 96127; 99212 ==

== ENCOUNTER 2025-04-08 07:51 | Outpatient (AMB) | payer MEDICARE, MEDICAID, SELFPAY ==
--- OUTSIDE RECORDS SUMMARY | 2025-04-08 07:55 | XMS_ITS | Encounter Summary ---
Author Organization [facility] Address [address] [place] [address] Care Team Providers Care Company Pilot Name Role Phone Physician, Pcp Unknown Primary Care Provider Haley vailable Encounter Details Date Type Department Care Team (Late st Contact Info) Description 11/07/2024 Lab Requisition [facility] - Main Lab [address] [place] [address] Yemi Heck MD [address] [place] [address] Personal history of malignant neoplasm of bladder [...] AM EDT) Final Diagnosis A. Urine, Voided, ([id number]): Negative for high grade urothelial carcinoma. Acute inflammation present. Results of UroVysion fluorescence in situ hybridization (FISH) testing: CEP3: Normal CEP7: Normal CEP17: Normal LSI 9p21: Normal Interpretation: Normal profile Controls stained appropriately. Note: The results are intended as a screening device and should be interpreted in association with other clinical and pathological findings. 11/21/2024 2:02 PM EDT [facility] ([facility] [place]) [facility] Clinical Information History of bladder neoplasm (malignant) Z85.51 Urine Cytology/FISH (now) 11/21/2024 2:02 PM EDT [facility] Gross Description A. Urine, Voided, ([id number]): Received one ThinPrep slide for cytology and one ThinPrep slide for UroVysion FISH 11/21/2024 2:02 PM EDT [facility] Disclaimer Unless otherwise specified, all tissue is 10% NB formalin fixed and paraffin embedded. Technical pathology services provided by [facility] at [address] [facility] [address], [place] [address] (CLIA #[id number]/Latrice Gamble MD, Lavatory Attendant) 11/21/2024 2:02 PM EDT [facility] Tissue Urine specimen from urethra / Unknown 11/04/2024 11/07/2024 3:59 PM EDT us Yemi Heck MD LAB PATHOLOGY ORDERABLES Fi nal Result [facility] [address] [place] [address], documented in this encounter Visit Diagnoses Diagnosis Personal history of malignant neoplasm of bladder documented in this encounter Care Teams Company Pilot Relationship Specialty Start Date End Date Physician, Pcp Unknown PCP - General 11/07/24 documented as of this encounter
--- OUTSIDE RECORDS SUMMARY | 2025-04-08 07:55 | XMS_ITS | Clinical Summary ---
Author Organization [address] [facility] Address [address] [place] [address] Phone Care Team Providers Care Outside Parts Sales Name Role Phone Physician, Pcp Unknown Primary Care Provider Haley vailable Social History Tobacco Use Types Packs/Day Years Used Date Smoking Tobacco: Never Assessed Sex and Gender Information Value Date Recorded Sex Assigned at Not on file Legal Sex Male 3:54 PM EDT Gender Identity Not on file Sexual Orientation Not on file Plan of Treatment Health Maintenance Due Date Last Done Comments Colorectal Cancer Screening: Colonoscopy 1961 DTaP,Tdap,and Td Vaccines (1 - Tdap) 1980 Pneumococcal Vaccine: 50+ Ye ars (1 of 1 - PCV) 09/05/2011 Zoster Vaccines (1 of 2) 09/05/2011 Depression Screening 07/02/2024 Cholesterol Screening (Lipid Panel) 11/07/2024 HIV Screening 11/07/2024 Hepatitis C Screening [...] Insurance MEDICARE MEDICAID - [place] Care Teams Outside Parts Sales Relationship Specialty Start Date End Date Physician, Pcp Unknown PCP - General 11/07/24
--- NOTE | 2025-04-08 08:06 | A.OFFVIS_ITS ---
Intake Visit Reasons: 6 Months f/u Allergies TERE inhibitors Allergy (Unknown, Uncoded 03/16/25 09:35) Cough HPI Comments Details: 64 y/o man under stress related to family issues ( of son and taking care of daughter's children) with Chronic Inflammatory Demylinating Polyradiculoneuropathy diagnosed in 2015. His EMG/NCS revealed demylinating neuropathy with axonal loss, and CSF protein was 100.7 in 2015, 125 in 2017, and 144 in Mar. He had an anaphylactic reaction from a dose of ivIg. He is presenting with stress-related conditions affecting his physical and mental health. He has been dealing with significant stress due to a family court case regarding custody of his children, which has adversely impacted his physical health, triggering increased appetite and weight gain even as he maintains a routine of running twice weekly and going to the gym. Due to the stress, he has been placed on an additional blood pressure medication regimen to manage his essential hypertension. 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 He maintains regular sessions with a mental health professional to help manage his stress. [facility] Medical History (Updated 04/08/25 @ 08:09 by Shanell Milner MD) Depression with anxiety Hypertension Chronic inflammatory demyelinating neuropathy Fasting hyperglycemia Neuropathic pain Peripheral neuropathy Obesity Neuropathy PTSD (post-traumatic stress disorder) Surgical History H/O colonoscopy History of surgery History of cystoscopy History of appendectomy Family History Father Myocardial infarction Mother Hypertension Brother Diabetes Son Neuroblastoma Social History Housing: Apartment Alcohol intake: never Patient Tobacco Use Status: Former Tobacco user Tobacco use type: Cigarette e-Cigarette/Vaping Use: Never Used Second Hand Smoke Exposure: Yes service: Yes Current occupational status: disabled Cognitive needs: No Hearing needs: No Vision needs: Yes (Reading glasses) Review of Systems Const Details: - Cardiovascular: Reports use of blood pressure medications (amlodipine and hydrochlorothiazide) - Ophthalmologic: Reports growth on left eyeball, cysts in right eye, tearing from the left eye - Psychological: Reports significant stress related to family court issues Physical Exam Neuro Other: Mental Status: Alert and oriented to person, place, and time. Normal attention. Normal spontaneous speech, fluency, and comprehension. No obvious issues with mood and memory. Affect is appropriate. Cranial Nerves: CN II: Visual sanabria full to confrontation, visual acuity intact. CN III, IV, : Pupils equal, round, reactive to light and accommodation. Extraocular movements are normal. CN V: Facial sensation is normal. CN VII: Facial movements symmetrical. CN VIII: Hearing intact to bedside conversation is normal. CN IX, X: Palate elevates symmetrically. CN XI: Shoulder shrug and head turn symmetrical. CN XII: Tongue midline without atrophy or fasciculations. Motor: Bulk and tone normal in all extremities. No significant muscle weakness in arms and legs. No drift. Reflexes: Deep tendon reflexes are 1+ in arms and absent in legs. Coordination: [id number] and knxe-jm-[id number] testing normal. No dysmetria. Gait and Station: No obvious gait abnormality. No ataxia or instability. Extrapyramidal: Full facial expressions and blinking. No rigidity. Movements are appropriate with no tremor or abnormality. Speech: Normal; no dysarthria or tremor. Assessment & Plan Assessment & Plan (1) Chronic inflammatory demyelinating neuropathy: Comment: CSF analysis at [facility] [place] [place] in Mar 2021: OP 12 cm, WBCs 0, RBCS 0, Glu 59, Pro 144.2, IgG ind: WNL, OCBs: 5 bands in serum and CSF NCV/EMG RTUE in Mar 2021 at off: Moderate to severe chronic axonal and demyelinating sensory and motor peripheral neuropathy. CSF analysis at [facility] [place] [place] in 2018: OP 27cm, WBCs 0, RBCs 5, Glu 57, Pro 125.4, IgG ind: ok, OCBs: 2 bands in serum and CSF NCV/EMG LE 10/31/17 Moderate to severe chronic axonal and demyelinating sensory and motor polyneuropathy. NCV/EMG LE 02/07/17 Moderately severe chronic axonal sensory and motor peripheral neuropathy EMG/NCS at [facility] [place] [place] in Mar 2016: Severe chronic SM demyelinating and axonal PN CSF analysis at [facility] [place] [place] in Jun 2016: OP27cm , WBCs 1, RBCs 0, Glu 55, Pro 100.7, IgG Ind: normal, OCBs: None Labs at [facility] [place] [place] in Jul 2016: IF ok, GRAHAM ok, RF ok, Lyme OK, RPR ok. Code(s): G61.81 - Chronic inflammatory demyelinating polyneuritis Category: Medical Plan Impression: a: CIDP in remission b: Significant stress related to family issues Rec: Prednisone 1mg a day Continue behavioral therapy Regular walking Coding Level of Care Code Est Pt Level 4 (68440) Diagnoses Chronic inflammatory demyelinating neuropathy G61.81
== END 2025-04-08 08:18 | disposition home or self-care (01) ==
LOC: HO.HSM 07:52
PROVIDERS: PCP Internal Medicine; Referring Provider Internal Medicine; Visit Provider Psychiatry & Neurology Neurology
DX: G61.81 Chronic inflammatory demyelinating polyneuritis (principal)
CPT/HCPCS: 99214

== ENCOUNTER → 2025-04-08 07:51 | Outpatient (BNVA) | payer MEDICARE, MEDICAID, SELFPAY | PROVIDERS: PCP Internal Medicine; Referring Provider Internal Medicine; Visit Provider Psychiatry & Neurology Neurology | DX: G61.81 Chronic inflammatory demyelinating polyneuritis (principal); I10 Essential (primary) hypertension; Z87.891 Personal history of nicotine dependence; Z63.8 Other specified problems related to primary support group; Z63.4 Disappearance and death of family member | CPT/HCPCS: 99212 ==

== ENCOUNTER 2025-06-23 05:58 | Outpatient (REF) | payer MEDICARE, MEDICAID, SELFPAY ==
--- OUTSIDE RECORDS SUMMARY | 2025-06-23 06:02 | XMS_ITS | Encounter Summary ---
Author Organization [facility] Address [address] [place] [address] Care Team Providers Care Grade School Teacher Name Role Phone Physician, Pcp Unknown Primary Care Provider Haley vailable Encounter Details Date Type Department Care Team (Late st Contact Info) Description 11/07/2024 Lab Requisition [facility] - Main Lab [address] [place] [address] Yemi Heck MD [address] [place] [address] Personal history of malignant neoplasm of bladder [...] AM EDT) Final Diagnosis A. Urine, Voided, ([id number]): Negative for high grade urothelial carcinoma. Acute inflammation present. Results of UroVysion fluorescence in situ hybridization (FISH) testing: CEP3: Normal CEP7: Normal CEP17: Normal LSI 9p21: Normal Interpretation: Normal profile Controls stained appropriately. Note: The results are intended as a screening device and should be interpreted in association with other clinical and pathological findings. 11/21/2024 2:02 PM EDT [facility] ([facility] at 1402 EDT Clinical Information History of bladder neoplasm (malignant) Z85.51 Urine Cytology/FISH (now) 11/21/2024 2:02 PM EDT [facility] Gross Description A. Urine, Voided, ([id number]): Received one ThinPrep slide for cytology and one ThinPrep slide for UroVysion FISH 11/21/2024 2:02 PM EDT [facility] Disclaimer Unless otherwise specified, all tissue is 10% NB formalin fixed and paraffin embedded. Technical pathology services provided by [facility] [address] [place] [address] (CLIA #[id number]/Latrice Gamble MD, Railway Yard Assistant) 11/21/2024 2:02 PM EDT [facility] Tissue Urine specimen from urethra / Unknown 11/04/2024 11/07/2024 3:59 PM EDT us Yemi Heck MD LAB PATHOLOGY ORDERABLES Fi nal Result [facility] [address] [place] [address], documented in this encounter Visit Diagnoses Diagnosis Personal history of malignant neoplasm of bladder documented in this encounter Care Teams Grade School Teacher Relationship Specialty Start Date End Date Physician, Pcp Unknown PCP - General 11/07/24 documented as of this encounter
--- OUTSIDE RECORDS SUMMARY | 2025-06-23 06:02 | XMS_ITS | Clinical Summary ---
Author Organization [facility] Address [address] [place] [address] Phone Care Team Providers Care Hot Man Name Role Phone Physician, Pcp Unknown Primary [...] Health Screening 11/07/2024 COVID-19 Vaccine (1 - 2024-2 6 season) 2025 Influenza Vaccine (#1) 2025 RSV [...] Insurance MEDICARE MEDICAID - [place] Care Teams Hot Man Relationship Specialty Start Date End Date Physician, Pcp Unknown PCP - General 11/07/24
[2025-06-23 07:38] LABS: Appearance Urine Clear; Glucose Urine UA Negative (Negative); PH 6.5 (5.0-9.0); Specific Gravity - Urine 1.010 (1.005-1.025)
[2025-06-23 07:50] LABS: Alanine Aminotransferase 47 U/L (0-40); Albumin Level 4.8 g/dL (3.5-5.0); Alkaline Phosphatase 74 U/L (39-117); Anion Gap 14 (12-20); Aspartate Amino Transferase 46 U/L (5-37); Blood Urea Nitrogen 16 mg/dL (9-16); Calcium 9.9 mg/dL (8.4-10.2); Carbon Dioxide 27 mmol/L (22-29); Chloride 100 mmol/L (96-108); Cholesterol 197 mg/dL (<200); Estimated Glomerular Filt Rate > 60; HDL Cholesterol 65 mg/dL (>40); Potassium 4.3 mmol/L (3.3-5.1); Sodium 137 mmol/L (135-145); Total Protein 7.8 g/dL (6.5-8.0); Triglycerides 61 mg/dL (<150)
== END 2025-06-23 05:59 | disposition home or self-care (01) ==
LOC: HO.LAB 05:58
DX: I10 Essential (primary) hypertension (principal); F41.9 Anxiety disorder, unspecified; F32.9 Major depressive disorder, single episode, unspecified; E78.5 Hyperlipidemia, unspecified; E66.811 Obesity, class 1; Z68.32 Body mass index [BMI] 32.0-32.9, adult
CPT/HCPCS: 36415; 80053; 80061; 81003; 82306; 82570; 84443

== ENCOUNTER 2025-06-26 08:31 | Outpatient (AMB) | payer MEDICARE, MEDICAID, SELFPAY ==
--- NOTE | 2025-06-26 08:34 | MHC.PC.OV ---
Vital Signs 06/26/25 08:35 Height 5 ft 9 in Weight 221 lb BMI 32.6 BP 110/80 Blood Pressure Location Lt brachial Position Sitting Pulse 64 Pulse Source Pulse Oximeter Temp 96.9 F Temp Source Temporal Artery Scan Pulse Oximetry (%) 97 Oxygen Delivery Method Room Air Intake Visit Reasons: 3 month f/u Intake Note: Patient is here to follow up on HTN, HLD. 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 Recent labs show slightly elevated liver enzymes and an increase in cholesterol. The patient reports his diet has been terrible for the last few months. He takes ibuprofen 4-5 times per week but was counseled this is a rare cause of elevated liver enzymes. The patient is experiencing a very stressful situation as his daughter is a heroin addict and he is raising two of her children. He also has a history of grief following the of his son from cancer. He sees a therapist every two weeks. He attributes his poor eating habits to the stress, stating he eats like a pig . He exercises regularly but states his main problem is his eating. He is about 30 pounds overweight and feels like crap. Health Maintenance - The patient was counseled on diet and exercise to reverse potential fatty liver, which includes cutting out fatty foods. - He was also advised to improve his diet to help lower his cholesterol. Social History - Family/Living Situation: The patient is under significant stress as he is raising two of his grandchildren due to his daughter's heroin addiction. - He also has a history of grief from the of his son due to cancer. - He is engaged in therapy every two weeks. - Nutrition: The patient reports his diet has been - terrible, with consumption of fatty foods and overeating related to stress. - He states he is approximately 30 pounds overweight. - Exercise: He exercises regularly. - Substance Use: He reports taking ibuprofen 4-5 times per week. Results - Labs: Recent labs show slightly elevated liver enzymes and an increase in cholesterol. [facility] Medical History (Updated 06/26/25 @ 09:08 by MOSES Steele) Depression with anxiety Hypertension Chronic inflammatory demyelinating neuropathy Fasting hyperglycemia Neuropathic pain Peripheral neuropathy Obesity Neuropathy PTSD (post-traumatic stress disorder) Surgical History H/O colonoscopy History of surgery History of cystoscopy History of appendectomy Family History Father Myocardial infarction Mother Hypertension Brother Diabetes Son Neuroblastoma Social History Housing: Apartment Alcohol intake: never Patient Tobacco Use Status: Former Tobacco user Tobacco use type: Cigarette e-Cigarette/Vaping Use: Never Used Second Hand Smoke Exposure: Yes service: Yes Current occupational status: disabled Cognitive needs: No Hearing needs: No Vision needs: Yes (Reading glasses) Questionnaire PHQ-9 Over the last 2 weeks, how often have you been bothered by any of the following problems? Depression Screening Interpretation: Positive Depression Screening Done: Yes Source: Developed by Drs. Live Hernandez, Indigo Kamara, Wesley Duron and colleagues, with an educational linda from [employer]. Thrive Questionnaire Date Thrive assessed: 11/11/24 I am a: Patient What is your living situation today?: I have a steady place to live Within the past 12 months, did the food you bought not last and you didn't have the money to get more?: Never true Within the past 12 months, did you worry whether your food would run out before you got money to buy more?: Never true Do you have trouble paying for medicines?: No Do you have trouble getting transportation to medical appointments?: No Do you have trouble paying your heating and electricity bill?: No Do you have trouble taking care of your child, family member or friend?: No Do you have trouble with day-to-day activities such as bathing, preparing meals, shopping, managing finances, etc.?: No Are you currently unemployed and looking for a job?: No Are you interested in more education?: No Currently or been in a relationship where the following occur: No concerns reported THRIVE Score: 0 DUTCH-7 AMB Questionnaire DUTCH-7 Date DUTCH - 7 assessed: 03/16/25 Source: Developed by Drs. Live Hernandez, Indigo Kamara, Wesley Duron and colleagues, with an educational linda from [employer]. Review of Systems Narrative Review of Systems - Constitutional: Reports feeling - like crap due to being overweight. - Gastrointestinal: Denies stomach pain. - Cardiovascular: Denies chest pain or palpitations. - Respiratory: Denies shortness of breath. - Psychiatric: Reports significant stress, difficulty focusing, and sleep disturbances related to his family situation. Const Denies body aches, Denies chills, Denies fever(s), Denies headache(s) and Denies poor appetite Eyes Reports no additional complaints ENT Denies dysphagia, Denies dizziness, Denies headache(s) and Denies odynophagia Card Denies chest pain, Denies syncope, Denies edema, Denies irregular heart rhythm, Denies lightheadedness and Denies dyspnea Resp Denies cough and Denies dyspnea GI Denies abdominal pain, Denies constipation, Denies dysphagia, Denies diarrhea, Denies nausea, Denies odynophagia and Denies vomiting Reports no additional complaints Musc Reports no additional complaints and Denies abnormal gait Skin/Breast Reports system reviewed and no additional complaints, except as documented Neuro Denies abnormal gait, Denies dizziness, Denies syncope and Denies headache(s) Psych Reports no additional complaints Physical exam (Primary Care) Vital Signs: Last Vital Signs Temp 96.9 F 06/26/25 08:35 Pulse 64 06/26/25 08:35 BP 110/80 06/26/25 08:35 Pulse Ox 97 06/26/25 08:35 Oxygen Delivery Method Room Air 06/26/25 08:35 BMI result Body Mass Index 32.6 Tobacco/Smoking Status: Tobacco use Status Tobacco use date assessed 06/26/25 06/26/25 08:38 Patient Tobacco Use Status Former Tobacco user 06/26/25 08:38 Tobacco use type Cigarette 06/26/25 08:38 e-Cigarette/Vaping Use Never Used 06/26/25 08:38 Depression Screening Interpretation: Positive Thrive Assessment: Date of Thrive Assessment Date Thrive assessed 11/11/24 06/26/25 08:38 Currently or been in a relationship where the following occur: No concerns reported Narrative Physical Exam - Vitals: Blood pressure is good. - Lungs: Clear to auscultation bilaterally. Const General: cooperative, healthy appearing, comfortable and no acute distress Orientation/consciousness: patient oriented x3 HENMT Head: Yes normocephalic Ears: hearing grossly normal bilaterally General nose exam: Normal external nose present Eyes General: appearance normal, both eyes and all related structures Conjunctivae: conjunctivae normal Neck Neck: Yes full ROM and Yes no lymphadenopathy Resp Effort & Inspection: normal respiratory effort Auscultation: clear to auscultation bilaterally, no crackles, no rales, no rhonchi and no wheezes Cardio Rate: regular rate Rhythm: regular rhythm Skin General skin exam: no rashes or lesions noted Neuro General: patient oriented x3 Gait exam (Neuro): Normal gait present Extrem General: Yes normal to inspection, Yes full ROM and No edema Psych Affect: normal affect Attitude: cooperative Insight: Good insight present (Psych) Judgement: Good judgement present (Psych) Results Reviewed Results Reviewed: Laboratory Tests 06/23/25 06/23/25 06:08 06:13 Sodium 137 Potassium 4.3 Chloride 100 Carbon Dioxide 27 Anion Gap 14 BUN 16 Creatinine 1.04 Estimated GFR > 60 Fasting Glucose 88 Calcium 9.9 Total Bilirubin 1.4 H AST 46 H ALT 47 H Alkaline Phosphatase 74 Total Protein 7.8 Albumin 4.8 Triglycerides 61 Cholesterol 197 LDL Cholesterol, Calc 120 H HDL Cholesterol 65 25-OH Vitamin D Total 35.0 TSH 1.89 Urine Color Yellow Urine Appearance Clear Urine pH 6.5 Ur Specific [place] 1.010 Urine Protein Negative Urine Glucose (UA) Negative Urine Ketones 15 Urine Blood Negative Urine Nitrite Negative Ur Leukocyte Esterase Negative Urine Creatinine 58.13 Urine Microalbumin < 5.0 Microalb/Creat Ratio TNP Coding Level of Care Code Est Pt Level 4 (25475) Diagnoses Hyperlipidemia, unspecified hyperlipidemia type E78.5 Hyperlipidemia type: unspecified Hypertension, unspecified type I10 Hypertension type: unspecified Class 1 obesity with body mass index (BMI) of 32.0 to 32.9 in adult, unspecified obesity type, unspecified whether serious comorbidity present E66.811; Z68.32 Obesity type: unspecified obesity type Obesity classification: adult class 1 (BMI 30 - 34.9) Serious obesity comorbidity presence: unspecified whether serious comorbidity present Body mass index: BMI 32.0-32.9 Reactive depression F32.9 Depression Type: reactive depression Anxiety F41.9 Neuropathy G62.9 Elevated liver enzymes R74.8 Time Spent (min) 34 Assessment & Plan Assessment & Plan (1) HLD (hyperlipidemia): Code(s): E78.5 - Hyperlipidemia, unspecified Category: Medical Qualifiers: Hyperlipidemia type: unspecified Qualified Code(s): E78.5 - Hyperlipidemia, unspecified Plan: The patient's LDL 120 mg/dL increased from 100 mg/dL The patient's cholesterol has increased, which is trending in the wrong direction though not at a critical level. This is likely attributable to his recent poor dietary habits. Plan includes counseling on dietary modification to reduce fatty food intake. A follow-up fasting lipid panel will be checked in 3 months to monitor for improvement (2) Hypertension: Code(s): I10 - Essential (primary) hypertension Category: Medical Qualifiers: Hypertension type: unspecified Qualified Code(s): I10 - Essential (primary) hypertension Plan: Blood pressure 152/98 in office. Reinforced dash diet Continue hydrochlorothiazide 25 mg daily, add amlodipine 5 mg daily Return in 1 month for blood pressure check by nurse Blood pressure decreased to 122/76 mm Hg and is 110/80 mm Hg today in office Reinforced low-salt diet (3) Obesity: Code(s): E66.9 - Obesity, unspecified Category: Medical Qualifiers: Obesity type: unspecified obesity type Obesity classification: adult class 1 (BMI 30 - 34.9) Serious obesity comorbidity presence: unspecified whether serious comorbidity present Body mass index: BMI 32.0-32.9 Qualified Code(s): E66.811 - Obesity, class 1; Z68.32 - Body mass index [BMI] 32.0-32.9, adult Plan: Encouraged to exercise for at least 30 minutes a day/5 days a week Healthy eating discussed. Encouraged to eat fruits/vegetables, protein-fish/baked chicken, and to avoid salty/fried foods, sweets, caffeine and carbohydrates. Encouraged to increase water intake 6-8 glasses a day (4) Depression: Code(s): F32.A - Depression, unspecified Category: Medical Qualifiers: Depression Type: reactive depression Qualified Code(s): F32.9 - Major depressive disorder, single episode, unspecified Plan: He is seeing a therapist every 2 weeks Coping with exercise and staying physically active Denies SI/HI (5) Anxiety: Code(s): F41.9 - Anxiety disorder, unspecified Category: Medical Plan: He is seeing a therapist every 2 weeks Coping with exercise and staying physically active Denies SI/HI (6) Neuropathy: Code(s): G62.9 - Polyneuropathy, unspecified Category: Medical Plan: Encouraged compression stockings Not a fan of medication and would like to stay the natural route continue physical activity as tolerated to improve circulation (7) Elevated liver enzymes: Code(s): R74.8 - Abnormal levels of other serum enzymes Category: Medical Plan: The patient presents with slightly elevated liver enzymes of unclear etiology. The elevation may be related to his self-reported poor diet with fatty foods, raising suspicion for non-alcoholic fatty liver disease (NAFLD). Ibuprofen use is considered a less likely cause. Plan includes further workup with liver-specific labs and an abdominal ultrasound to evaluate the liver parenchyma. Plan Plan Patient was informed and verbally consented to the use of an ambient scribe for clinic note documentation during this visit. 1. Elevated Liver Enzymes The patient presents with slightly elevated liver enzymes of unclear etiology. The elevation may be related to his self-reported poor diet with fatty foods, raising suspicion for non-alcoholic fatty liver disease (NAFLD). Ibuprofen use is considered a less likely cause. Plan includes further workup with liver-specific labs and an abdominal ultrasound to evaluate the liver parenchyma. 2. Hypercholesterolemia The patient's cholesterol has increased, which is trending in the wrong direction though not at a critical level. This is likely attributable to his recent poor dietary habits. Plan includes counseling on dietary modification to reduce fatty food intake. A follow-up fasting lipid panel will be checked in 3-4 months to monitor for improvement. 3. Stress The patient reports significant, chronic stress due to raising his two grandchildren as a result of his daughter's heroin addiction, which has led to maladaptive eating habits. He also continues to cope with grief from the loss of his son. He is appropriately seeking support and sees a therapist every two weeks. The plan is to continue supportive care, acknowledge the difficulty of his situation, and encourage his efforts to improve his diet as a measure for self-care. Discussion Notes I reviewed the patient's recent lab results, which showed slightly elevated liver enzymes and an increase in cholesterol. I explained that while his ibuprofen use could be a factor, it is a very rare cause of liver enzyme elevation. I discussed the possibility that his diet, which he described as poor and high in fatty foods, could be causing fatty liver, which in turn elevates the enzymes. To further investigate, I ordered more specific liver function tests and an ultrasound of his abdomen. We also discussed the rise in his cholesterol, which is also likely related to his diet. I recommended he focus on dietary improvements and we will recheck his cholesterol labs in 3-4 months. I acknowledged the significant stress he is under due to his family situation and how it is affecting his eating habits and sleep. I supported his current engagement with therapy and his commitment to improving his diet. Patient Instructions - Please go to the lab to get your blood drawn for the liver tests as soon as possible. - You do not need to fast for these tests. - The imaging center will call you to schedule an ultrasound of your belly. - Try to cut back on fatty foods. - Improving your diet can help your liver and cholesterol levels, and will help you feel better. - We will recheck your cholesterol in 3-4 months. - You will need to fast for the follow-up cholesterol test. - I will see you back in the office in about 3 months. Orders: Orders Hepatitis A,B,C Profile Today R74.8 - Abnormal levels of other serum enzymes IRON PROFILE Today R74.8 - Abnormal levels of other serum enzymes Complement C4 Today R74.8 - Abnormal levels of other serum enzymes Prothrombin Time INR Today R74.8 - Abnormal levels of other serum enzymes Comprehensive [place]. Panel Fast 3 Months E66.811 - Obesity, class 1, E78.5 - Hyperlipidemia, unspecified, F41.9 - Anxiety disorder, unspecified, F43.10 - Post-traumatic stress disorder, unspecified, I10 - Essential (primary) hypertension, R74.8 - Abnormal levels of other serum enzymes, Z68.32 - Body mass index [BMI] 32.0-32.9, adult TSH reflex Free T4 3 Months E66.811 - Obesity, class 1, E78.5 - Hyperlipidemia, unspecified, F41.9 - Anxiety disorder, unspecified, F43.10 - Post-traumatic stress disorder, unspecified, I10 - Essential (primary) hypertension, R74.8 - Abnormal levels of other serum enzymes, Z68.32 - Body mass index [BMI] 32.0-32.9, adult Ferritin Today R74.8 - Abnormal levels of other serum enzymes Complement C3 Today R74.8 - Abnormal levels of other serum enzymes CRP High Sensitivity Today R74.8 - Abnormal levels of other serum enzymes Erythrocyte Sedimentation Rate Today R74.8 - Abnormal levels of other serum enzymes US abdomen complete Today R74.8 - Abnormal levels of other serum enzymes Lipid Panel 3 Months E66.811 - Obesity, class 1, E78.5 - Hyperlipidemia, unspecified, F41.9 - Anxiety disorder, unspecified, F43.10 - Post-traumatic stress disorder, unspecified, I10 - Essential (primary) hypertension, R74.8 - Abnormal levels of other serum enzymes, Z68.32 - Body mass index [BMI] 32.0-32.9, adult Complete Blood Count Auto Diff 3 Months E66.811 - Obesity, class 1, E78.5 - Hyperlipidemia, unspecified, F41.9 - Anxiety disorder, unspecified, F43.10 - Post-traumatic stress disorder, unspecified, I10 - Essential (primary) hypertension, R74.8 - Abnormal levels of other serum enzymes, Z68.32 - Body mass index [BMI] 32.0-32.9, adult UA CC w/rflx Micro + Cult 3 Months E66.811 - Obesity, class 1, E78.5 - Hyperlipidemia, unspecified, F41.9 - Anxiety disorder, unspecified, F43.10 - Post-traumatic stress disorder, unspecified, I10 - Essential (primary) hypertension, R74.8 - Abnormal levels of other serum enzymes, Z68.32 - Body mass index [BMI] 32.0-32.9, adult Vitamin D 25-OH Total 3 Months E66.811 - Obesity, class 1, E78.5 - Hyperlipidemia, unspecified, F41.9 - Anxiety disorder, unspecified, F43.10 - Post-traumatic stress disorder, unspecified, I10 - Essential (primary) hypertension, R74.8 - Abnormal levels of other serum enzymes, Z68.32 - Body mass index [BMI] 32.0-32.9, adult
--- OUTSIDE RECORDS SUMMARY | 2025-06-26 08:34 | XMS_ITS | Encounter Summary ---
Author Organization [facility] Address [address] [place] [address] Care Team Providers Care Clerical Car Checker Name Role Phone Physician, Pcp Unknown Primary Care Provider Haley vailable Encounter Details Date Type Department Care Team (Late st Contact Info) Description 11/07/2024 Lab Requisition [facility] - Main Lab [address] [place] [address] Yemi Heck MD [address] [place] [address] Personal history of malignant neoplasm of bladder [...] AM EDT) Final Diagnosis A. Urine, Voided, ([id number]): Negative for high grade urothelial carcinoma. Acute inflammation present. Results of UroVysion fluorescence in situ hybridization (FISH) testing: CEP3: Normal CEP7: Normal CEP17: Normal LSI 9p21: Normal Interpretation: Normal profile Controls stained appropriately. Note: The results are intended as a screening device and should be interpreted in association with other clinical and pathological findings. 11/21/2024 2:02 PM EDT [facility] at 1402 EDT Clinical Information History of bladder neoplasm (malignant) Z85.51 Urine Cytology/FISH (now) 11/21/2024 2:02 PM EDT [facility] Gross Description A. Urine, Voided, ([id number]): Received one ThinPrep slide for cytology and one ThinPrep slide for UroVysion FISH 11/21/2024 2:02 PM EDT [facility] Disclaimer Unless otherwise specified, all tissue is 10% NB formalin fixed and paraffin embedded. Technical pathology services provided by [facility] at [address] [place] [address] (CLIA #[id number]/Latrice Gamble MD, Pillow Filler) 11/21/2024 2:02 PM EDT [facility] Tissue Urine specimen from urethra / Unknown 11/04/2024 11/07/2024 3:59 PM EDT us Yemi Heck MD LAB PATHOLOGY ORDERABLES Fi nal Result [facility] [address] [place] [address], documented in this encounter Visit Diagnoses Diagnosis Personal history of malignant neoplasm of bladder documented in this encounter Care Teams Clerical Car Checker Relationship Specialty Start Date End Date Physician, Pcp Unknown PCP - General 11/07/24 documented as of this encounter
--- OUTSIDE RECORDS SUMMARY | 2025-06-26 08:34 | XMS_ITS | Clinical Summary ---
Author Organization [address] [facility] Address [address] [place] [address] Phone Care Team Providers Care Director Of Orthopedics Name Role Phone Physician, Pcp Unknown Primary [...] Insurance MEDICARE MEDICAID - [place] Care Teams Director Of Orthopedics Relationship Specialty Start Date End Date Physician, Pcp Unknown PCP - General 11/07/24
[2025-06-26 08:35] VITALS: BP 110/80; PULSE 64; TEMP 36.1; O2SAT 97; BMI 32.6
== END 2025-06-26 09:20 | disposition home or self-care (01) ==
LOC: HO.HMCH 08:31
DX: E78.5 Hyperlipidemia, unspecified (principal); I10 Essential (primary) hypertension; E66.811 Obesity, class 1; Z68.32 Body mass index [BMI] 32.0-32.9, adult; F32.9 Major depressive disorder, single episode, unspecified; F41.9 Anxiety disorder, unspecified; G62.9 Polyneuropathy, unspecified; R74.8 Abnormal levels of other serum enzymes

== ENCOUNTER 2025-06-26 08:31 | Outpatient (REF) | payer MEDICARE, MEDICAID, SELFPAY ==
[2025-06-26 10:53] LABS: Iron 49 mcg/dL (45-160); Percent Iron Saturation 15 % (15-50); Total Iron Binding Capacity 331 mcg/dL (228-428); Unsaturated Iron Binding 282 ug/dL
[2025-06-26 10:58] LABS: INTERNATIONAL NORM RATIO 1.1 (0.9-1.1); Prothrombin Time 13.8 SEC (11.2-13.5)
[2025-06-26 11:13] LABS: Ferritin 415 ng/mL (20-250)
[2025-06-26 11:27] LABS: HBS Num1 0.00 mIU/mL (0-7.99); HBc Num1 0.10 S/CO (0.00-0.79); HBsAGNum1 0.31 S/CO (0.00-0.99); Hepatitis A Antibody IgM 0.18 Index (0-0.79); Hepatitis B Surface Antigen Negative (Negative); ~HepC Num1 0.11 S/CO (0.00-0.79); ~Hepatitis A Antibody IgM Nonreactive (Nonreactive); ~Hepatitis B Surface Antibody NONREACTIVE (Nonreactive); ~Hepatitis C Antibody Nonreactive (Nonreactive)
== END 2025-06-26 08:32 | disposition home or self-care (01) ==
LOC: HO.LAB 08:31
DX: Z00.00 Encounter for general adult medical examination without abnormal findings (principal); I10 Essential (primary) hypertension; R74.8 Abnormal levels of other serum enzymes; E78.00 Pure hypercholesterolemia, unspecified; E66.811 Obesity, class 1; F32.9 Major depressive disorder, single episode, unspecified; F41.9 Anxiety disorder, unspecified; G62.9 Polyneuropathy, unspecified; E78.5 Hyperlipidemia, unspecified; F43.10 Post-traumatic stress disorder, unspecified; Z68.32 Body mass index [BMI] 32.0-32.9, adult
CPT/HCPCS: 36415; 82728; 82947; 83540; 85610; 85652; 86141; 86160; 86704; 86706; 86709; 86803; 87340; 99212